=== PATIENT | male | born 1950 | race Caucasian/White ===

== ENCOUNTER 2020-09-26 14:57 | Outpatient (REF) | payer OTHER, SELFPAY | END 2020-09-26 14:58 | disposition home or self-care (01) | LOC: HO.LAB 14:57 | PROVIDERS: Visit Provider Internal Medicine | DX: Z20.828 Contact with and (suspected) exposure to other viral communicable diseases (principal) | CPT/HCPCS: C9803; U0003 ==

== ENCOUNTER 2020-10-24 13:47 | Outpatient (REF) | payer OTHER, SELFPAY | END 2020-10-24 13:48 | disposition home or self-care (01) | LOC: HO.LAB 13:47 | PROVIDERS: Visit Provider Internal Medicine | DX: Z20.822 Contact with and (suspected) exposure to COVID-19 (principal) | CPT/HCPCS: 36415; C9803; U0003 ==

== ENCOUNTER 2020-11-03 12:38 | Outpatient (REF) | payer OTHER, SELFPAY | END 2020-11-03 12:39 | disposition home or self-care (01) | LOC: HO.LAB 12:38 | PROVIDERS: Visit Provider Internal Medicine | DX: Z20.822 Contact with and (suspected) exposure to COVID-19 (principal) | CPT/HCPCS: 36415; C9803; U0003 ==

== ENCOUNTER 2021-06-16 13:18 | Emergency (ER) | payer OTHER, SELFPAY ==
--- NOTE | ~2021-06-16 | CT_ITS ---
EXAMINATION: CT HEAD WITHOUT CONTRAST CLINICAL INFORMATION: New onset seizures. History of colon cancer. COMPARISON: None TECHNIQUE: Contiguous axial imaging was performed from the skull base to vertex without intravenous administration of contrast. This CT examination was performed using dose optimization techniques as appropriate, variously including the following: *Automated exposure control *Adjustment of mA and/or kV according to patient size (this includes techniques or standardized protocols for targeted exams where dose is matched to indication/reason for exam; i.e. extremities or head) *Use of iterative reconstruction technique DLP: 624 mGy-cm FINDINGS: There is no acute intra-axial, extra-axial bleed, masses, collection or midline shift. There is no acute infarct or edema. There is moderate prominence of bifrontal cortical sulci and subarachnoid space. The lateral. The ventricles are normal in size and symmetry. The echevarria to white matter differentiation is maintained normal. There is no abnormal attenuation within the brain parenchyma. The osseous structures and soft tissues are normal. The mastoid air cells and visualized portions of the paranasal sinuses are well aerated. CT/CT head/brain wo con IMPRESSION: No acute intracranial process seen.
[2021-06-16 13:31] VITALS: BP 160/72; BP 168/67; PULSE 74; PULSE 80; RESP 13; TEMP 36.8; O2SAT 97; O2SAT 99; BMI 18.8
--- NOTE | 2021-06-16 13:32 | ECG_ITS ---
Test Reason : SEIZURE Blood Pressure : / mmHG Vent. Rate : 073 BPM Atrial Rate : 073 BPM P-R Int : 128 ms QRS Dur : 098 ms QT Int : 414 ms P-R-T Axes : 061 012 124 degrees QTc Int : 456 ms Normal sinus rhythm Possible Left atrial enlargement Left ventricular hypertrophy with repolarization abnormality T-wave inversion in Lateral leads Abnormal ECG No previous ECGs available Referred By: Rosa Mcekon Electronically Signed By:EBER HARVEY
--- NOTE | 2021-06-16 13:33 | ED_ITS ---
HPI - Seizure General Chief Complaint: Seizure Stated Complaint: SEIZURE Time Seen by Provider: 06/16/21 13:22 Source: patient Mode of arrival: ambulatory Limitations: no limitations History of Present Illness HPI Narrative: Patient comes to the emergency room by EMS. The EMS staff reports that they were called for a tonic-clonic seizure that lasted ?a few seconds? the family reports that after the seizure the patient seemed confused for a few minutes, now patient at baseline. Patient denies headache, does not remember having a seizure. Patient states he was awake the whole time and does not remember anything happening to him, other than feeling nauseous and vomiting once prior to arrival. Patient states that he admits to drinking 1 neb of vodka and beer prior to arrival. Family reports that the patient did not fall or hit his head Related Data Allergies Allergy/AdvReac Type Severity Reaction Status Date / Time No Known Allergies Allergy Unverified 06/22/20 19:11 [No Known Allergies*] Review of Systems Review of Systems: Constitutional : No Weight loss, No Fever, No Chills, No Night Sweats, No Fatigue, No Malaise ENT/Mouth : No Hearing loss, No Ear Pain, No Nasal Congestion, No Sinus Pain, No Hoarseness, No sore throat, No Rhinorrhea, No Swallowing Difficulty Eyes: No Eye Pain, No Swelling, No Redness, No Foreign Body, No Discharge, No Vision Changes Cardiovascular : No Chest Pain, No SOB, No Dyspnea on Exertion, No Orthopnea, No Edema, No Palpitations Respiratory : No Cough, No Sputum, No Wheezing, No Smoke Exposure, No Dyspnea Gastrointestinal : 1 episode of nausea and vomiting, No Diarrhea, No Constipation, No abdominal Pain, No Hematochezia, No Melena Genitourinary : no irregular bleeding, No Dysuria, No Urinary Frequency, No Hematuria, No Urinary Incontinence, No Urgency, No Flank Pain, No Urinary Flow Changes, No Hesitancy Musculoskeletal : No joint pain, No Myalgias, No Joint Swelling Skin : No Skin Lesions, No rash Neuro : No Weakness, No Numbness, No Paresthesias, No Loss of Consciousness, No Dizziness, No Headache, possibly had a seizure Psych : No Anxiety/Panic, No Depression, No SI/HI/AH/VH, No Social Issues, Heme/Lymph: No Bruising, No Bleeding,No Lymphadenopathy Endocrine : No Polyuria, No Polydipsia, No Temperature Intolerance COUNTS INCLUDE 234 BEDS AT THE [facility] Past Medical History Medical History (Updated 06/16/21 @ 13:38 by Rosa Mckeon MD) Direct inguinal hernia Social History Social History Alcohol intake: current Alcohol intake frequency: 3 or more drinks per day Alcohol type: beer and hard liquor Patient Tobacco Use Status: Current everyday Tobacco user Use of substances other than those prescribed or required for medical reasons: No Advance Directives: No Advance Directives Information Provided: Yes Physical Exam Vital Signs: Vital Signs: Last Vital Signs Temp 98.2 F 06/16/21 13:31 Pulse 74 06/16/21 13:31 Resp 13 06/16/21 13:31 BP 168/67 H 06/16/21 13:31 Pulse Ox 97 06/16/21 13:31 Body Mass Index 18.8 Const: Other: Appearance: Alert. Oriented X3. No acute distress. Patient is not postictal Eyes: Pupils equal, round and reactive to light. ENT: Pharynx normal. Neck: Normal inspection. Neck supple. No lymph nodes noted. No crepitus CVS: Normal heart rate and rhythm. Pulses normal. Normal S1 and S2 Respiratory: No respiratory distress. Breath sounds normal. No Wheezing. No rales Abdomen: Soft and nontender. No rigidity. No distention. good BS x4 Skin: Skin warm and dry. Normal skin color. Normal skin turgor. Extremities: No lower extremity edema No Lacerations. No Rash Neuro: Oriented X 3. No motor deficit. No sensory deficit. Moving all extermities. No slurred speech. Course Course Course Narrative: Patient is alert and oriented x3. Patient's head CT is normal, lactic acid within normal limits, white blood cell count normal. At this time, it is unclear if patient actually did have a seizure. Patient at this time is stable, asymptomatic. Patient will be discharged home. At this time, we will not start any medications for seizures. Patient's troponin is pending. If negative, patient can be discharged home. Sign-out given to Dr. Inez MCGILL - Seizure Lab Data Result diagrams: 06/16/21 14:02 06/16/21 14:02 Labs: Lab Results 06/16/21 06/16/21 06/16/21 Range/Units 14:02 14:02 14:02 WBC 10.0 (4.8-10.8) X10*3/uL RBC 4.45 L (4.60-5.80) X10*6/uL Hgb 14.8 (14.0-18.0) g/dl Hct 42.6 (42-52) % MCV 95.7 (80-98) fL MCH 33.3 H (27.0-33.0) pg MCHC 34.7 (31.0-36.0) g/dl RDW 15.6 (11.0-16.0) % Plt Count 273 (160-400) X10*3/uL MPV 9.4 (9.4-12.4) fL Immature Gran % (Auto) 0.4 (0.0-0.4) % Neut % (Auto) 58.6 (45-73) % Lymph % (Auto) 28.9 (20-40) % Louisa % (Auto) 9.5 (2-11) % Eos % (Auto) 2.2 (0-4) % Baso % (Auto) 0.4 (0-2) % Lymph # (Auto) 2.9 (1.2-4.9) X10*3/uL Louisa # (Auto) 1.0 (0.1-1.2) X10*3/uL Eos # (Auto) 0.2 (0.0-0.4) X10*3/uL Baso # (Auto) 0.0 (0.0-0.2) X10*3/uL Abs Immat Gran (auto) 0.04 H (0.00-0.03) X10*3/uL Absolute Neuts (auto) 5.9 (2.0-8.3) X10*3/uL Absolute Nucleated RBC 0.000 (0.0-0.012) X10*3/uL Nucleated RBC % (auto) 0.0 (0.0-0.2) /100WBC Sodium 140 (135-145) mmol/L Potassium 3.7 (3.3-5.1) mmol/L Chloride 105 (96-108) mmol/L Carbon Dioxide 24 (22-29) mmol/L Anion Gap 15 (12-20) BUN 6 L (9-16) mg/dL Creatinine 0.87 (0.5-1.4) mg/dL Estim Creat Clear Calc 59.9 Estimated GFR > 60 Random Glucose 88 (60-115) mg/dL Lactic Acid 1.8 (0.5-2.0) mmol/L Calcium 9.7 (8.4-10.2) mg/dL Total Bilirubin 0.8 (0.0-1.0) mg/dL Direct Bilirubin 0.3 (0.0-0.5) mg/dL AST 21 (5-37) U/L ALT 12 (0-40) U/L Alkaline Phosphatase 74 (39-117) U/L Total Protein 6.9 (6.5-8.0) g/dL Albumin 4.3 (3.5-5.0) g/dL Ethyl Alcohol mg/dL 06/16/21 Range/Units 14:02 WBC (4.8-10.8) X10*3/uL RBC (4.60-5.80) X10*6/uL Hgb (14.0-18.0) g/dl Hct (42-52) % MCV (80-98) fL MCH (27.0-33.0) pg MCHC (31.0-36.0) g/dl RDW (11.0-16.0) % Plt Count (160-400) X10*3/uL MPV (9.4-12.4) fL Immature Gran % (Auto) (0.0-0.4) % Neut % (Auto) (45-73) % Lymph % (Auto) (20-40) % Louisa % (Auto) (2-11) % Eos % (Auto) (0-4) % Baso % (Auto) (0-2) % Lymph # (Auto) (1.2-4.9) X10*3/uL Louisa # (Auto) (0.1-1.2) X10*3/uL Eos # (Auto) (0.0-0.4) X10*3/uL Baso # (Auto) (0.0-0.2) X10*3/uL Abs Immat Gran (auto) (0.00-0.03) X10*3/uL Absolute Neuts (auto) (2.0-8.3) X10*3/uL Absolute Nucleated RBC (0.0-0.012) X10*3/uL Nucleated RBC % (auto) (0.0-0.2) /100WBC Sodium (135-145) mmol/L Potassium (3.3-5.1) mmol/L Chloride (96-108) mmol/L Carbon Dioxide (22-29) mmol/L Anion Gap (12-20) BUN (9-16) mg/dL Creatinine (0.5-1.4) mg/dL Estim Creat Clear Calc Estimated GFR Random Glucose (60-115) mg/dL Lactic Acid (0.5-2.0) mmol/L Calcium (8.4-10.2) mg/dL Total Bilirubin (0.0-1.0) mg/dL Direct Bilirubin (0.0-0.5) mg/dL AST (5-37) U/L ALT (0-40) U/L Alkaline Phosphatase (39-117) U/L Total Protein (6.5-8.0) g/dL Albumin (3.5-5.0) g/dL Ethyl Alcohol 80 mg/dL Imaging Data CT scan - head: Radiologist's impression: There is no acute intra-axial, extra-axial bleed, masses, collection or midline shift. There is no acute infarct or edema. There is moderate prominence of bifrontal cortical sulci and subarachnoid space. The lateral. The ventricles are normal in size and symmetry. The echevarria to white matter differentiation is maintained normal. There is no abnormal attenuation within the brain parenchyma. The osseous structures and soft tissues are normal. The mastoid air cells and visualized portions of the paranasal sinuses are well aerated. ? CT/CT head/brain wo con IMPRESSION: No acute intracranial process seen. ECG Data Attestation: I personally reviewed and interpreted this ECG as follows: (Sinus rhythm 73, nonspecific ST segment elevation in lead V3, T-wave inversion in leads V4 through V6, no previous EKGs for comparison) Discharge Plan Discharge Clinical Impression: Alcohol abuse Patient Disposition: Home, Self-Care Instructions: Abuse of Alcohol (ED) Additional Instructions: Please follow-up with your primary care physician tomorrow. If you have any worsening or new symptoms, please return to the emergency room or call 911
[2021-06-16 14:06] LABS: MANUAL DIFF FLAG NO
[2021-06-16 14:08] LABS: Basophils Percent Auto 0.4 % (0-2); Eosinophils Absolute Auto 0.2 X10*3/uL (0.0-0.4); Eosinophils Percent Auto 2.2 % (0-4); Hematocrit 42.6 % (42-52); Hemoglobin 14.8 g/dl (14.0-18.0); Imm Gran Abs Auto 0.04 X10*3/uL (0.00-0.03); Imm Gran Pct Auto 0.4 % (0.0-0.4); Lymphocytes Absolute Auto 2.9 X10*3/uL (1.2-4.9); Lymphocytes Percent Auto 28.9 % (20-40); Mean Corpuscular HGB Conc 34.7 g/dl (31.0-36.0); Mean Corpuscular Hemoglobin 33.3 pg (27.0-33.0); Mean Corpuscular Volume 95.7 fL (80-98); Mean Platelet Volume 9.4 fL (9.4-12.4); Monocytes Percent Auto 9.5 % (2-11); Neutrophils Absolute Auto 5.9 X10*3/uL (2.0-8.3); Neutrophils Percent Auto 58.6 % (45-73); Platelet Count 273 X10*3/uL (160-400); Red Blood Count 4.45 X10*6/uL (4.60-5.80); Red Cell Distribution Width 15.6 % (11.0-16.0)
[2021-06-16 14:20] LABS: Lactic Acid 1.8 mmol/L (0.5-2.0)
[2021-06-16 14:23] LABS: Ethanol 80 mg/dL
[2021-06-16 14:27] LABS: Alanine Aminotransferase 12 U/L (0-40); Albumin Level 4.3 g/dL (3.5-5.0); Alkaline Phosphatase 74 U/L (39-117); Anion Gap 15 (12-20); Aspartate Amino Transferase 21 U/L (5-37); Bilirubin Direct 0.3 mg/dL (0.0-0.5); Bilirubin Total 0.8 mg/dL (0.0-1.0); Blood Urea Nitrogen 6 mg/dL (9-16); Calcium 9.7 mg/dL (8.4-10.2); Carbon Dioxide 24 mmol/L (22-29); Chloride 105 mmol/L (96-108); Creatinine Clr Calc Pharmacy 59.9; Estimated Glomerular Filt Rate > 60; Glucose Random 88 mg/dL (60-115); Potassium 3.7 mmol/L (3.3-5.1); Sodium 140 mmol/L (135-145); Total Protein 6.9 g/dL (6.5-8.0)
[2021-06-16 16:27] VITALS: BP 176/82; PULSE 64; RESP 18; O2SAT 99
--- NOTE | 2021-06-16 16:30 | PC.NURSE ---
Resting quietly in NAD. VSS
--- NOTE | 2021-06-16 19:23 | PC.NURSE ---
Addendum entered by Michelle Browning 06/16/21 20:20: Note/Report is on incorrect patient- HIM to correct Addendum entered by Michelle Browning 06/16/21 19:30: Notes entered in error; wrong patient. Addendum entered by Michelle Browning 06/16/21 19:25: note incomplete but this RN had to switch screens to answer Dr Wiley if pt had rec'd chest xr per Dr Mckeon' orders. Pt with seizure hx and had seizure today witnessed by family. This RN to Dr Wiley who rec'd sign out from Dr Mckeon. Dr Wiley reports he will assess pt and dispo pt. While this RN at bedside, Dr Wiley arrives at bedside. Per Dr Wiley, plan for chest XR and PO pain meds. Pt expresses understanding, is agreeable to plan. Pt remains on bedside air sampling and monitoring, VSS. Stretcher in low locked position, rails raised, call bhakta within reach Original Note: This RN rec'd report from Jessenia Alba RN. Per Jessenia in report, pt removed PIV prior to completion of sepsis fluids. Pt's lactic had been down trending from 6 to 2.3 after one liter. Pt medicated with PO depakote This RN to bedside to assess pt and obtain repeat lactic.
--- NOTE | 2021-06-16 19:28 | PC.NURSE ---
Addendum entered by Michelle Browning 06/16/21 20:24: Note/Report is on incorrect patient- HIM to correct Original Note: Per Dr Wiley, do not draw repeat lactic. Not needed at this time as Dr Wiley believes lactic was elevated d/t seizure. Pt does not need completion of IVF.
[2021-06-16 20:27] VITALS: BP 176/80; PULSE 71; RESP 13; O2SAT 99
== END 2021-06-16 21:02 | disposition home or self-care (01) ==
PROVIDERS: Emergency Medicine; Emergency Provider Emergency Medicine Emergency Medical Services
DX: F10.10 Alcohol abuse, uncomplicated (principal); Y90.4 Blood alcohol level of 80-99 mg/100 ml; F17.210 Nicotine dependence, cigarettes, uncomplicated
CPT/HCPCS: 36415; 70450; 80048; 80076; 82077; 83605; 84484; 85025; 93005; 99284

== ENCOUNTER 2021-11-19 10:05 | Outpatient (REF) | payer MEDICARE, MEDICAID, SELFPAY ==
[2021-11-19 10:37] LABS: COVID-19 Test Negative (Negative)
== END 2021-11-19 10:06 | disposition home or self-care (01) ==
LOC: HO.LAB 10:05
PROVIDERS: Visit Provider Internal Medicine
DX: Z20.822 Contact with and (suspected) exposure to COVID-19 (principal)
CPT/HCPCS: 87635; C9803

== ENCOUNTER 2022-02-13 12:13 | Inpatient (IN) | payer OTHER, MEDICARE, MEDICAID, SELFPAY ==
--- NOTE | ~2022-02-13 | CT_ITS ---
EXAMINATION: CT ABDOMEN AND PELVIS WITHOUT CONTRAST CLINICAL INFORMATION: Colectomy and abdominal pain. Blood in ostomy. COMPARISON: None TECHNIQUE: Multidetector volumetric imaging was performed from the superior aspect of the liver through the pubic symphysis. Sagittal and coronal reformatted images were obtained on the technologist's workstation. This CT examination was performed using dose optimization techniques as appropriate, variously including the following: *Automated exposure control *Adjustment of mA and/or kV according to patient size (this includes techniques or standardized protocols for targeted exams where dose is matched to indication/reason for exam; i.e. extremities or head) *Use of iterative reconstruction technique DLP: 216 mGy-cm FINDINGS: LUNG BASES: There are 2, 4 mm calcified nodules in the right lower lobe. Lung bases are otherwise clear. LIVER, GALLBLADDER, AND BILIARY TREE: There is a small calcification in the liver. The liver is otherwise unremarkable. The gallbladder is unremarkable. There is no biliary duct dilatation. The gallbladder is unremarkable with no evidence of radiopaque gallstones, gallbladder wall thickening, or obvious pericholecystic inflammatory changes. PANCREAS: Unremarkable. SPLEEN: Unremarkable. ADRENAL GLANDS: Unremarkable. KIDNEYS AND URETERS: There are bilateral renal calcifications probably representing a combination of vascular calcifications and small stones. There is a small 1 cm cyst in the lower pole of the right kidney. No imaging follow-up is indicated. BLADDER: Unremarkable GASTROINTESTINAL TRACT: There are postsurgical changes to the sigmoid colon surgical staple lines. There is a right colectomy and right lower quadrant ileostomy. There is diverticulosis of the colon. Small and large bowel is otherwise unremarkable. No evidence of enteritis or colitis or obstruction. No ascites or free air is seen. ABDOMINAL WALL: No significant hernia is appreciated. LYMPH NODES: There are small, small bowel mesentery lymph nodes. No enlarged lymph nodes are seen. VASCULAR: There is severe atherosclerotic disease. PELVIC VISCERA: The prostate gland is slightly enlarged measuring 3.5 x 0.5 cm. OSSEOUS STRUCTURES: There are degenerative changes of the spine. CT/CT abdomen pelvis wo con IMPRESSION: Postsurgical changes. No evidence of enteritis, colitis or obstruction. Severe atherosclerotic disease. Probable small bilateral renal stones. Small right renal cyst. Fleischner guidelines were followed.
--- NOTE | ~2022-02-13 | XR_ITS ---
EXAMINATION: XR CHEST CLINICAL INFORMATION: Failure to thrive COMPARISON: None TECHNIQUE: AP portable view of the chest was obtained. FINDINGS: No confluent parenchymal disease identified. There are a few calcified granulomas present. No pneumothorax or pleural effusion. Heart normal size. No evidence of pulmonary edema. Right internal jugular port catheter in place with tip at the level of the caval atrial junction. XR/XR chest 1V IMPRESSION: No acute disease.
[2022-02-13 12:17] VITALS: BP 130/70; BP 153/85; PULSE 79; PULSE 85; RESP 20; TEMP 36.4; O2SAT 98; BMI 16.3
[2022-02-13 12:37] LABS: OBS Int Ctl Valid YES; OBS1 NEGATIVE (NEGATIVE)
--- NOTE | 2022-02-13 12:37 | ECG_ITS ---
Test Reason : FAILURE TO THRIVE Blood Pressure : / mmHG Vent. Rate : 078 BPM Atrial Rate : 078 BPM P-R Int : 130 ms QRS Dur : 092 ms QT Int : 384 ms P-R-T Axes : 083 055 119 degrees QTc Int : 437 ms Normal sinus rhythm Biatrial enlargement Left ventricular hypertrophy ( Sokolow-Schwartz , Ledbetter product ) ST & T wave abnormality, consider anterolateral ischemia Abnormal ECG When compared with ECG of 16-JUN-2021 13:50, No significant change was found Referred By: Tsering Baker Electronically Signed By:MARIAM MEIER MD
[2022-02-13 13:10] LABS: MANUAL DIFF FLAG NO
[2022-02-13 13:16] LABS: Basophils Percent Auto 0.3 % (0-2); Eosinophils Percent Auto 0.1 % (0-4); Hematocrit 47.1 % (42.0-52.0); Hemoglobin 16.2 g/dl (14.0-18.0); Imm Gran Pct Auto 0.7 % (0.0-0.4); Lymphocytes Absolute Auto 2.2 X10*3/uL (1.2-4.9); Lymphocytes Percent Auto 15.7 % (20-40); Mean Corpuscular HGB Conc 34.4 g/dl (31.0-36.0); Mean Corpuscular Hemoglobin 31.5 pg (27.0-33.0); Mean Corpuscular Volume 91.5 fL (80.0-98.0); Mean Platelet Volume 9.4 fL (9.4-12.4); Monocytes Absolute Auto 0.8 X10*3/uL (0.1-1.2); Monocytes Percent Auto 5.5 % (2-11); Neutrophils Absolute Auto 11.1 x10*3/uL (2.0-8.3); Neutrophils Percent Auto 77.7 % (45-73); Platelet Count 406 X10*3/uL (160-400); Red Blood Count 5.15 X10*6/uL (4.60-5.80); Red Cell Distribution Width 13.2 % (11.0-16.0); White Blood Count 14.3 X10*3/uL (4.8-10.8)
[2022-02-13] MEDS: 0.9 % Sodium Chloride 1,000 ML 999 ML IV (13:23)
[2022-02-13 13:27] LABS: COVID-19 Test Negative (Negative); IDNOW Serial# 55D5AD1C
[2022-02-13 13:36] LABS: Troponin-I High Sensitivity 8.9 ng/L (<3.5-35.0)
[2022-02-13 13:44] LABS: Alanine Aminotransferase 29 U/L (0-40); Alkaline Phosphatase 180 U/L (39-117); Anion Gap 21 (12-20); Aspartate Amino Transferase 26 U/L (5-37); Bilirubin Direct 0.3 mg/dL (0.0-0.5); Bilirubin Total 1.1 mg/dL (0.0-1.0); Blood Urea Nitrogen 82 mg/dL (9-16); Calcium 11.5 mg/dL (8.4-10.2); Carbon Dioxide 18 mmol/L (22-29); Chloride 95 mmol/L (96-108); Creatinine Clr Calc Pharmacy 20.2; Estimated Glomerular Filt Rate 29; Glucose Random 113 mg/dL (60-115); Lipase 64 U/L (8-78); Potassium 6.7 mmol/L (3.3-5.1); Sodium 127 mmol/L (135-145); Total Protein 9.9 g/dL (6.5-8.0)
[2022-02-13] MEDS: Sodium Polystyrene Sulfon/Sorb 15 GM/60 ML ORAL.SUSP 30 GM PO (14:24)
[2022-02-13] MEDS: Calcium Gluconate/NaCl,Iso-Osm 2 GM/100 ML PLAST..BAG IV (14:24)
--- NOTE | 2022-02-13 14:41 | ED_ITS ---
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 Related Data Allergies Allergy/AdvReac Type Severity Reaction Status Date / Time No Known Allergies Allergy Unverified 06/22/20 19:11 [No Known Allergies*] Review of Systems Review of Systems: All other systems are reviewed and are negative Constitutional: Reports as per HPI and Reports no additional constitutional complaints Eyes: Reports as per HPI and Reports no additional eye complaints Reports system reviewed and no additional complaints, except as documented Cardiovascular: Reports as per HPI and Reports no additional cardiovascular complaints Respiratory: Reports as per HPI and Reports no additional respiratory complaints Gastrointestinal: Reports as per HPI and Reports no additional gastrointestinal complaints Genitourinary: Reports no additional female genitourinary complaints Musculoskeletal: Reports no additional musculoskeletal complaints Skin/Breast: Reports system reviewed and no additional complaints, except as docu Psychiatric: Reports no additional psychiatric complaints Endocrine: Reports no additional endocrine complaints Hematologic/Lymphatic: Reports no additional hematologic/lymphatic complaints Allergic/Immunologic: Reports no additional allergic/immunologic complaints Reports system reviewed and no additional complaints, except as documented and Reports Abnormal speech present [facility] Past Medical History Medical History (Updated 02/13/22 @ 14:59 by Tsering Baker MD) Direct inguinal hernia Social History Social History Alcohol intake: current Alcohol intake frequency: does not drink Alcohol type: beer and hard liquor Patient Tobacco Use Status: Former Tobacco user Smoked in Last 30 Days: No Use of substances other than those prescribed or required for medical reasons: No Advance Directives: No Physical Exam ED Vital Signs: Vital Signs - 24 hr 02/13/22 12:17 Temperature 97.6 F Pulse Rate 85 Respiratory Rate 20 Blood Pressure 153/85 H Pulse Oximetry 98 BMI result Body Mass Index 16.3 Vital signs have been reviewed as appeared to be correct. Blood pressure normal. Heart rate normal. Respiration rate normal. Temperature normal. Oxygen saturation normal. Appearance: Alert. No acute distress. Head: Normal external exam. Normocephalic. Atraumatic. No Sharp signs noted. No raccoon eyes noted Eyes: PERRLA. EOMI. Conjunctiva and sclera normal. Eyelids normal. ENT: TM's Normal. Pharynx normal. Uvula midline. Moist mucous membranes. No trismus noted. No drooling noted. No muffled voice noted. Neck: Normal inspection. Neck supple. FROM. No adenopathy. Thyroid Normal. No meningeal signs. No neck mass noted. CVS: Normal heart rate and rhythm. Heart sound normal. No murmurs noted. Pulses normal throughout. Respiratory: No respiratory distress. Painless inspiration. Breath sounds normal. No wheezes/rales/rhonchi noted. Chest nontender. No accessory muscle u mary noted or decreased air movement noted. Abdomen: Soft, nontender, ostomy bag is full of dark liquid stool, no blood. Bowel sounds normal in all 4 quadrants. No distention noted. No organomegaly noted. No visible injury noted. Back: No CVA tenderness. Full range of motion noted. Skin: Skin warm and dry. Normal skin color. Normal skin turgor. No rashes/lesions/lacerations noted. Extremities: No lower extremity edema. Extremities exhibit normal range of motion. Extremities nontender. Neuro: Cranial nerve exam: II-XII are grossly intact No motor deficit. No sensory deficit. Reflexes normal. Course Course Course Narrative: Assessment and plan. 71-year-old male with colostomy done at [facility] record is not available currently but requested from [facility], appear patient dehydration with prerenal acute injury with hyperkalemia with no EKG changes. 1. Nephrology consult by Dr. Thomas Cintron, insert Cox catheter, give Kayexalate 30 g p.o., calcium 2 g, hydration, check urine electrolytes. 2. Surgical consult for possible high ostomy output (case discussed with Dr. Alvarez). Medical Decision Making Lab Data Lab results reviewed: Yes I reviewed the patient's lab results. Result diagrams: 02/13/22 13:00 02/13/22 13:00 Labs: Lab Results 02/13/22 02/13/22 02/13/22 Range/Units 12:30 13:00 13:00 WBC 14.3 H (4.8-10.8) X10*3/uL RBC 5.15 (4.60-5.80) X10*6/uL Hgb 16.2 (14.0-18.0) g/dl Hct 47.1 (42.0-52.0) % MCV 91.5 (80.0-98.0) fL MCH 31.5 (27.0-33.0) pg MCHC 34.4 (31.0-36.0) g/dl RDW 13.2 (11.0-16.0) % Plt Count 406 H (160-400) X10*3/uL MPV 9.4 (9.4-12.4) fL Immature Gran % (Auto) 0.7 H (0.0-0.4) % Neut % (Auto) 77.7 H (45-73) % Lymph % (Auto) 15.7 L (20-40) % Caroline % (Auto) 5.5 (2-11) % Eos % (Auto) 0.1 (0-4) % Baso % (Auto) 0.3 (0-2) % Lymph # (Auto) 2.2 (1.2-4.9) X10*3/uL Caroline # (Auto) 0.8 (0.1-1.2) X10*3/uL Eos # (Auto) 0.0 (0.0-0.4) X10*3/uL Baso # (Auto) 0.0 (0.0-0.2) X10*3/uL Abs Immat Gran (auto) 0.10 H (0.00-0.03) X10*3/uL Absolute Neuts (auto) 11.1 H (2.0-8.3) x10*3/uL Absolute Nucleated RBC 0.000 (0.0-0.012) X10*3/uL Nucleated RBC % (auto) 0.0 (0.0-0.2) /100WBC Sodium 127 L (135-145) mmol/L Potassium 6.7 H* D (3.3-5.1) mmol/L Chloride 95 L (96-108) mmol/L Carbon Dioxide 18 L (22-29) mmol/L Anion Gap 21 H (12-20) BUN 82 H (9-16) mg/dL Creatinine 2.21 H (0.5-1.4) mg/dL Estim Creat Clear Calc 20.2 Estimated GFR 29 Random Glucose 113 (60-115) mg/dL Calcium 11.5 H D (8.4-10.2) mg/dL Total Bilirubin 1.1 H (0.0-1.0) mg/dL Direct Bilirubin 0.3 (0.0-0.5) mg/dL AST 26 (5-37) U/L ALT 29 (0-40) U/L Alkaline Phosphatase 180 H D (39-117) U/L Troponin I High Sens (<3.5-35.0) ng/L Total Protein 9.9 H D (6.5-8.0) g/dL Albumin 5.0 (3.5-5.0) g/dL Lipase 64 (8-78) U/L Stool Occult Blood NEGATIVE (NEGATIVE) COVID-19 (B[facility]AN) (Negative) COVID-19 Clin Com 02/13/22 02/13/22 Range/Units 13:00 13:00 WBC (4.8-10.8) X10*3/uL RBC (4.60-5.80) X10*6/uL Hgb (14.0-18.0) g/dl Hct (42.0-52.0) % MCV (80.0-98.0) fL MCH (27.0-33.0) pg MCHC (31.0-36.0) g/dl RDW (11.0-16.0) % Plt Count (160-400) X10*3/uL MPV (9.4-12.4) fL Immature Gran % (Auto) (0.0-0.4) % Neut % (Auto) (45-73) % Lymph % (Auto) (20-40) % Caroline % (Auto) (2-11) % Eos % (Auto) (0-4) % Baso % (Auto) (0-2) % Lymph # (Auto) (1.2-4.9) X10*3/uL Caroline # (Auto) (0.1-1.2) X10*3/uL Eos # (Auto) (0.0-0.4) X10*3/uL Baso # (Auto) (0.0-0.2) X10*3/uL Abs Immat Gran (auto) (0.00-0.03) X10*3/uL Absolute Neuts (auto) (2.0-8.3) x10*3/uL Absolute Nucleated RBC (0.0-0.012) X10*3/uL Nucleated RBC % (auto) (0.0-0.2) /100WBC Sodium (135-145) mmol/L Potassium (3.3-5.1) mmol/L Chloride (96-108) mmol/L Carbon Dioxide (22-29) mmol/L Anion Gap (12-20) BUN (9-16) mg/dL Creatinine (0.5-1.4) mg/dL Estim Creat Clear Calc Estimated GFR Random Glucose (60-115) mg/dL Calcium (8.4-10.2) mg/dL Total Bilirubin (0.0-1.0) mg/dL Direct Bilirubin (0.0-0.5) mg/dL AST (5-37) U/L ALT (0-40) U/L Alkaline Phosphatase (39-117) U/L Troponin I High Sens 8.9 (<3.5-35.0) ng/L Total Protein (6.5-8.0) g/dL Albumin (3.5-5.0) g/dL Lipase (8-78) U/L Stool Occult Blood (NEGATIVE) COVID-19 (BRIAN) Negative (Negative) COVID-19 Clin Com See Note Imaging Data CT scan - abdomen: Attestation: I personally reviewed and interpreted this imaging study as follows: Radiologist's impression: Postsurgical changes. No evidence of enteritis, colitis or obstruction.Severe atherosclerotic disease. Probable small bilateral renal stones. Small right renal cyst. ECG Data Attestation: I personally reviewed and interpreted this ECG as follows: Interpretation: Normal sinus rhythm at 78 beats per minutes, normal axis deviation, LVH, diffuse T-wave inversion in the lateral leads. no change from EKG. Discharge Plan Discharge Clinical Impression: High output ileostomy, Acute renal failure, Acute hyperkalemia Patient Disposition: Admitted As Inpatient
[2022-02-13] MEDS: Lidocaine HCl 2 % Urojet 10 ML JEL.PF.APP TOPICAL (15:17)
--- NOTE | 2022-02-13 15:44 | P.HPHOSP_ITS ---
History of Present Illness Date of Service: 02/13/22 Chief Complaint: lethargy, high output colostomy history from patient via office assistant receptionist, darryl historian 71M presented with weakness, high output from colostomy and back pain, for about 1-2 weeks ptpUche ly reports history of colostomy s/p colectomy for colon ca. he reports to be in remission. he was at PCPs office who felt patient looked poor, reported 1-2 weeks anorexia and sent patient to ED. in ED found to be in MAXIMO with creatinine of 2.21, hypoerkalemia with potassium of 6.7. was given 30gm kayexylate, cagluconate, IV fluids. Review of Systems Review of Systems: Constitutional: Denies fever, denies Chills Eyes: denies blurry vision ENT: denies sore throat CVS: denies chest pain Respiratory: Denies dyspnea GI: high outpute colosotmy : denies dysuria MSK: denies neck pain Skin: denies rash Neuro: denies specific motor weakness Psych: denies suicidal ideation Endocrine: denies heat/cold intolerance Hematologic: denies easy bleeding Allergy: denies hives [facility] Medical History Colon cancer Direct inguinal hernia HTN (hypertension) Family History Mother Colon cancer Surgical History H/O colectomy Social History Alcohol intake: current Alcohol intake frequency: does not drink Alcohol type: beer and hard liquor Patient Tobacco Use Status: Former Tobacco user Smoked in Last 30 Days: No Use of substances other than those prescribed or required for medical reasons: No Advance Directives: No Meds Allergies Allergy/AdvReac Type Severity Reaction Status Date / Time No Known Allergies Allergy Unverified 06/22/20 19:11 [No Known Allergies*] Active Medications: Current Medications Acetaminophen (Acetaminophen 325 Mg Tablet) 650 mg PO Q6H PRN PRN Reason: Pain, Mild (Pain Scale 1-3) Heparin Sodium (Porcine) (Heparin Sodium,Porcine 5,000 Unit/Ml Vial) 5,000 unit SUBCUT Q12H SKIP Calcium Gluconate (Calcium Gluconate) 2 gm in 100 mls @ 50 mls/hr IV ONCE ONE Stop: 02/13/22 16:11 Last Admin: 02/13/22 14:24 Dose: 50 mls/hr Documented by: Sodium Bicarbonate 150 meq/ (Dextrose) 1,000 mls @ 100 mls/hr IV .Q10H [facility] Pharmacy Consult (Consult Rx Perform Med Rec) 1 each MISCELLANE ONCE PRN PRN Reason: Consult order Sodium Chloride (0.9 % Sodium Chloride Flush 3 Ml Syringe) 3 ml IVFLUSH QSHIFT [facility] Physical Exam Vital Signs and Narrative: Vital Signs: Last Vital Signs Temp 97.6 F 02/13/22 12:17 Pulse 85 02/13/22 12:17 Resp 20 02/13/22 12:17 BP 153/85 H 02/13/22 12:17 Pulse Ox 98 02/13/22 12:17 BMI result Body Mass Index 16.3 General: frail ill appearing, cachexic HEENT: atraumatic Neck: normal to visual inspection CVS: S1, S2, RRR Resp: CTA bilateral Chest: non tender GI: soft, non tender, non distended : no CVA tenderness Skin: no rashes Extremities: no edema Neuro: Oriented X3, grossly intact Psych: cooperative Results Labs CBC and Chem 7: 02/13/22 13:00 02/13/22 13:00 Labs: Laboratory Results - last 24 hr 02/13/22 02/13/22 02/13/22 12:30 13:00 13:00 MCV 91.5 MCH 31.5 MCHC 34.4 RDW 13.2 Plt Count 406 H MPV 9.4 Immature Gran % (Auto) 0.7 H Neut % (Auto) 77.7 H Lymph % (Auto) 15.7 L [place] % (Auto) 5.5 Eos % (Auto) 0.1 Baso % (Auto) 0.3 Lymph # (Auto) 2.2 [place] # (Auto) 0.8 Eos # (Auto) 0.0 Baso # (Auto) 0.0 Abs Immat Gran (auto) 0.10 H Absolute Neuts (auto) 11.1 H Absolute Nucleated RBC 0.000 Nucleated RBC % (auto) 0.0 Anion Gap 21 H Estim Creat Clear Calc 20.2 Estimated GFR 29 Random Glucose 113 Calcium 11.5 H D Total Bilirubin 1.1 H Direct Bilirubin 0.3 AST 26 ALT 29 Alkaline Phosphatase 180 H D Troponin I High Sens Total Protein 9.9 H D Albumin 5.0 Lipase 64 Stool Occult Blood NEGATIVE COVID-19 (BRIAN) COVID-19 Clin Com 02/13/22 02/13/22 13:00 13:00 MCV MCH MCHC RDW Plt Count MPV Immature Gran % (Auto) Neut % (Auto) Lymph % (Auto) [place] % (Auto) Eos % (Auto) Baso % (Auto) Lymph # (Auto) [place] # (Auto) Eos # (Auto) Baso # (Auto) Abs Immat Gran (auto) Absolute Neuts (auto) Absolute Nucleated RBC Nucleated RBC % (auto) Anion Gap Estim Creat Clear Calc Estimated GFR Random Glucose Calcium Total Bilirubin Direct Bilirubin AST ALT Alkaline Phosphatase Troponin I High Sens 8.9 Total Protein Albumin Lipase Stool Occult Blood COVID-19 (BRIAN) Negative COVID-19 Clin Com See Note Imaging Radiologist's Impressions: Impressions Chest X-Ray 02/13/22 12:56 IMPRESSION: No acute disease. Abdomen/Pelvis CT 02/13/22 13:17 IMPRESSION: Postsurgical changes. No evidence of enteritis, colitis or obstruction. Severe atherosclerotic disease. Probable small bilateral renal stones. Small right renal cyst. Fleischner guidelines were followed. Assessment and Plan (1) Colon cancer: Status: Acute Plan 71M presented with FTT, MAXIMO, hyperkalemia FTT, MAXIMO, and hyperkalemia, due to dehydration from high output ostomy IVF montior potassium closely tele (no ekg changes) monitor bmp nephro eval history of HTN will plan to restart home med once list obtained (depending on med) colon ca iwth moderat protein calorie malnutrition outpatient follow up dvt prophyalxis - hep sq full code patient is high risk for cardiac arrythmia due to significant hyperkalemia and maximo therfore requiring atleast 2 midnights in hospital. Quality Stroke Does the patient have a stroke diagnosis?: No VTE Prior VTE?: No VTE Risk Level:: Medical - moderate - high VTE Device Contraindication: Treatment Not Indicated VTE Drug Contraindication: N/A - Med Ordered
[2022-02-13 15:45] VITALS: BP 171/94; PULSE 95; RESP 24; TEMP 36.4; O2SAT 98
[2022-02-13 15:46] LABS: Appearance Urine HAZY; Color Urine YELLOW; Glucose Urine UA NEG (NEG); Leukocyte Esterase Urine NEG (NEG); Nitrite Urine NEG (NEG); Specific Gravity - Urine >= 1.030 (1.005-1.025); UACC Culture Trigger NO; Urine Blood 3+ (NEG); Urine Ketones NEG (NEG); Urine Protein TRACE MG/DL (NEG-TRACE)
[2022-02-13 16:00] LABS: Potassium Urine Random 79.7 mmol/L; Sodium Urine Random < 20.0 mmol/L
[2022-02-13 16:03] LABS: Chloride Urine Random < 20.0 mmol/L
[2022-02-13 16:07] LABS: WBC Urine 0-2 /HPF (0-4)
[2022-02-13 16:08] LABS: Bacteria Urine 1+ /LPF; Squamous Epithelial Cell Urine TRACE /LPF
[2022-02-13 16:10] LABS: Mucus Urine 1+ /LPF
--- NOTE | 2022-02-13 16:28 | PHA.MEDREC ---
Pharmacy Consult ? Medication Reconciliation Pharmacy has completed the medication reconciliation. Med list obtained from [place]
[2022-02-13] MEDS: Sodium Bicarbonate 8.4% 150 MEQ in Dextrose 5 % 850 ML 100 MEQ IV (17:31)
[2022-02-13] MEDS: Heparin Sodium,Porcine 5,000 UNIT/ML VIAL 5000 UNIT SUBCUT (17:31)
[2022-02-13 17:34] VITALS: BP 147/97; PULSE 101; RESP 24; O2SAT 100
[2022-02-13 18:38] LABS: Anion Gap 23 (12-20); Blood Urea Nitrogen 74 mg/dL (9-16); Calcium 11.9 mg/dL (8.4-10.2); Carbon Dioxide 12 mmol/L (22-29); Chloride 102 mmol/L (96-108); Creatinine Clr Calc Pharmacy 23.9; Estimated Glomerular Filt Rate 36; Glucose Random 123 mg/dL (60-115); Potassium 5.1 mmol/L (3.3-5.1); Sodium 132 mmol/L (135-145)
[2022-02-13 18:48] VITALS: BP 175/98; PULSE 99; RESP 18; TEMP 36.5; O2SAT 98
--- NOTE | 2022-02-13 19:04 | PC.NURSE ---
Patient noted to have wound from a surgery he states he had a month ago on his abdomen. wound dehiscence, closed scar above wound. picture taken and sent to hospitalist. covered with dry and dressing.
[2022-02-13 19:46] VITALS: PULSE 95; O2SAT 96
--- NOTE | 2022-02-13 21:00 | PC.NURSE ---
pt c/o pain at tip of penis s/p foleyt insertion. pt uncircumsized; foreskin over tip of penis, previous RN consulted to determine if the appearance was the same which she stated it was. pt sofia contents emptied to know how much true urine is being produced. pt c/o leaking around sofia, burning sensation. small amount of white-red discharge noted. Urojet was utilized for insertion. Bladder scan showed 12 cc. MD Higgins aware.
--- NOTE | 2022-02-13 21:35 | PC.NURSE ---
pt abdominal wound cleansed and redressed. wound cleansed with NS, purlent yellow thin drainage noted. 2x2 applied, covered with abd pad and reinforced with tap. pt has no c/o abd pain. ileostomy producing liquid output. pt given water and la david
[2022-02-14] VITALS (11 sets, daily range): BP systolic 120–167; BP diastolic 56–85; PULSE 73–87; RESP 14–19; TEMP 36.4–37.1; O2SAT 96–98
[2022-02-14] MEDS: Sodium Bicarbonate 8.4% 150 MEQ in Dextrose 5 % 850 ML 100 MEQ IV (04:27)
[2022-02-14] MEDS: Heparin Sodium,Porcine 5,000 UNIT/ML VIAL 5000 UNIT SUBCUT ×2 (05:43→20:58)
[2022-02-14 07:58] LABS: Hematocrit 39.5 % (42.0-52.0); Mean Corpuscular HGB Conc 35.4 g/dl (31.0-36.0); Mean Corpuscular Volume 87.6 fL (80.0-98.0); Mean Platelet Volume 9.4 fL (9.4-12.4); Platelet Count 354 X10*3/uL (160-400); Red Blood Count 4.51 X10*6/uL (4.60-5.80); Red Cell Distribution Width 12.9 % (11.0-16.0); White Blood Count 11.2 X10*3/uL (4.8-10.8)
[2022-02-14 08:17] LABS: Anion Gap 15 (12-20); Blood Urea Nitrogen 67 mg/dL (9-16); Calcium 10.3 mg/dL (8.4-10.2); Carbon Dioxide 29 mmol/L (22-29); Chloride 92 mmol/L (96-108); Creatinine Clr Calc Pharmacy 30.6; Estimated Glomerular Filt Rate 47; Glucose Fasting 141 mg/dL (60-99); Potassium 3.8 mmol/L (3.3-5.1); Sodium 132 mmol/L (135-145)
--- NOTE | 2022-02-14 11:01 | HO.PM.IMPN ---
Subjective Subjective Date of Service: 02/14/22 Interval History: cc: weakness interval history:no appetite Cardiovascular Cardiovascular: Reports no additional cardiovascular complaints Respiratory Respiratory: Reports no additional respiratory complaints Physical Exam Vital Signs: Vital Signs: Last Vital Signs Temp 98.2 F 02/14/22 08:07 Pulse 75 02/14/22 08:07 Resp 16 02/14/22 08:07 BP 132/69 02/14/22 08:07 Pulse Ox 98 02/14/22 08:07 BMI result Body Mass Index 16.3 General: AO X 3, frail appearing Resp: CTA bilateral, no accessory muscles used CVS: S1,S2,RRR GI: soft, non tender, non distended Neuro: motor grossly intact, alert Psych: appropriate affect, appropriate insight Objective Data Active Medications Acetaminophen (Acetaminophen 325 Mg Tablet) 650 mg PO Q6H PRN PRN Reason: Pain, Mild (Pain Scale 1-3) Heparin Sodium (Porcine) (Heparin Sodium,Porcine 5,000 Unit/Ml Vial) 5,000 unit SUBCUT Q12H [facility] Last Admin: 02/14/22 05:43 Dose: 5,000 unit Documented by: TYREE Sodium Chloride (Ns) 1,000 mls @ 100 mls/hr IVCONT .Q10H [facility] Loperamide HCl (Loperamide Hcl 2 Mg Capsule) 2 mg PO BID [facility] Multivitamins/Vitamin C (Multivitamin Tablet) 1 tab PO DAILY [facility] Pharmacy Consult (Consult Rx Perform Med Rec) 1 each MISCELLANE ONCE PRN PRN Reason: Consult order Sodium Chloride (0.9 % Sodium Chloride Flush 3 Ml Syringe) 3 ml IVFLUSH QSHIFT [facility] Last Admin: 02/14/22 09:07 Dose: Not Given Documented by: ONUR Non-Admin Reason: IV Running Labs CBC & Chem 7: 02/14/22 07:42 02/14/22 07:42 Labs: Laboratory Results - last 24 hr 02/13/22 02/13/22 02/13/22 12:30 13:00 13:00 MCV 91.5 MCH 31.5 MCHC 34.4 RDW 13.2 Plt Count 406 H MPV 9.4 Immature Gran % (Auto) 0.7 H Neut % (Auto) 77.7 H Lymph % (Auto) 15.7 L [place] % (Auto) 5.5 Eos % (Auto) 0.1 Baso % (Auto) 0.3 Lymph # (Auto) 2.2 [place] # (Auto) 0.8 Eos # (Auto) 0.0 Baso # (Auto) 0.0 Abs Immat Gran (auto) 0.10 H Absolute Neuts (auto) 11.1 H Absolute Nucleated RBC 0.000 Nucleated RBC % (auto) 0.0 Anion Gap 21 H Estim Creat Clear Calc 20.2 Estimated GFR 29 Random Glucose 113 Fasting Glucose Calcium 11.5 H D Total Bilirubin 1.1 H Direct Bilirubin 0.3 AST 26 ALT 29 Alkaline Phosphatase 180 H D Troponin I High Sens Total Protein 9.9 H D Albumin 5.0 Lipase 64 Urine Color Urine Appearance Urine pH Ur Specific [place] Urine Protein Urine Glucose (UA) Urine Ketones Urine Blood Urine Nitrite Ur Leukocyte Esterase Urine RBC Urine WBC Ur Squamous Epith Cells Urine Bacteria Hyaline Casts Urine Mucus Ur Random Sodium Ur Random Potassium Ur Random Chloride Stool Occult Blood NEGATIVE COVID-19 (BRIAN) COVID-Pipeline[employer] 02/13/22 02/13/22 02/13/22 13:00 13:00 15:36 MCV MCH MCHC RDW Plt Count MPV Immature Gran % (Auto) Neut % (Auto) Lymph % (Auto) [place] % (Auto) Eos % (Auto) Baso % (Auto) Lymph # (Auto) [place] # (Auto) Eos # (Auto) Baso # (Auto) Abs Immat Gran (auto) Absolute Neuts (auto) Absolute Nucleated RBC Nucleated RBC % (auto) Anion Gap Estim Creat Clear Calc Estimated GFR Random Glucose Fasting Glucose Calcium Total Bilirubin Direct Bilirubin AST ALT Alkaline Phosphatase Troponin I High Sens 8.9 Total Protein Albumin Lipase Urine Color YELLOW Urine Appearance HAZY Urine pH 5.0 Ur Specific [place] >= 1.030 H Urine Protein TRACE Urine Glucose (UA) NEG Urine Ketones NEG Urine Blood 3+ H Urine Nitrite NEG Ur Leukocyte Esterase NEG Urine RBC 10-14 H Urine WBC 0-2 Ur Squamous Epith Cells TRACE Urine Bacteria 1+ Hyaline Casts 1-4 Urine Mucus 1+ Ur Random Sodium Ur Random Potassium Ur Random Chloride Stool Occult Blood COVID-19 (BRIAN) Negative COVID-19 [employer] See Note 02/13/22 02/13/22 02/14/22 15:36 18:15 07:42 MCV 87.6 MCH 31.0 MCHC 35.4 RDW 12.9 Plt Count 354 MPV 9.4 Immature Gran % (Auto) Neut % (Auto) Lymph % (Auto) [place] % (Auto) Eos % (Auto) Baso % (Auto) Lymph # (Auto) [place] # (Auto) Eos # (Auto) Baso # (Auto) Abs Immat Gran (auto) Absolute Neuts (auto) Absolute Nucleated RBC 0.000 Nucleated RBC % (auto) 0.0 Anion Gap 23 H Estim Creat Clear Calc 23.9 Estimated GFR 36 Random Glucose 123 H Fasting Glucose Calcium 11.9 H Total Bilirubin Direct Bilirubin AST ALT Alkaline Phosphatase Troponin I High Sens Total Protein Albumin Lipase Urine Color Urine Appearance Urine pH Ur Specific [place] Urine Protein Urine Glucose (UA) Urine Ketones Urine Blood Urine Nitrite Ur Leukocyte Esterase Urine RBC Urine WBC Ur Squamous Epith Cells Urine Bacteria Hyaline Casts Urine Mucus Ur Random Sodium < 20.0 Ur Random Potassium 79.7 Ur Random Chloride < 20.0 Stool Occult Blood COVID-19 (BRIAN) COVID-19 [employer] 02/14/22 07:42 MCV MCH MCHC RDW Plt Count MPV Immature Gran % (Auto) Neut % (Auto) Lymph % (Auto) [place] % (Auto) Eos % (Auto) Baso % (Auto) Lymph # (Auto) [place] # (Auto) Eos # (Auto) Baso # (Auto) Abs Immat Gran (auto) Absolute Neuts (auto) Absolute Nucleated RBC Nucleated RBC % (auto) Anion Gap 15 Estim Creat Clear Calc 30.6 Estimated GFR 47 Random Glucose Fasting Glucose 141 H Calcium 10.3 H D Total Bilirubin Direct Bilirubin AST ALT Alkaline Phosphatase Troponin I High Sens Total Protein Albumin Lipase Urine Color Urine Appearance Urine pH Ur Specific [place] Urine Protein Urine Glucose (UA) Urine Ketones Urine Blood Urine Nitrite Ur Leukocyte Esterase Urine RBC Urine WBC Ur Squamous Epith Cells Urine Bacteria Hyaline Casts Urine Mucus Ur Random Sodium Ur Random Potassium Ur Random Chloride Stool Occult Blood COVID-19 (BRIAN) COVID-19 [employer] Assessment and Plan (1) Colon cancer: Status: Acute Plan 71M presented with FTT, MAXIMO, hyperkalemia FTT, MAXIMO, and hyperkalemia, due to dehydration from high output ostomy hyperkalemia and metabolic acidosis resolved will change ivf from bicarb to NS monitor closely nephro eval history of HTN normally on amlodipine, bp low normal now off meds, will monitor colon ca with moderat protein calorie malnutrition outpatient follow up dvt prophyalxis - hep sq full code Quality Stroke Does the patient have a stroke diagnosis?: No VTE Prior VTE?: No VTE Risk Level:: Medical - moderate - high VTE Device Contraindication: Treatment Not Indicated VTE Drug Contraindication: N/A - Med Ordered
[2022-02-14] MEDS: 0.9 % Sodium Chloride 1,000 ML 100 ML IVCONT ×2 (11:38→21:09)
--- NOTE | 2022-02-14 15:49 | PM.CNNEP ---
History of Present Illness Reason for Consult Consult date: 02/14/22 Reason for consult: MAXIMO, non-oliguric Chief Complaint Chief complaint: MAXIMO Hyperkalemia History of Present Illness Narrative: 71M presented with FTT, MAXIMO, hyperkalemia due to dehydration from high output ostomy hyperkalemia and metabolic acidosis resolved. Patient had colectomy with colostomy bag is placed at [facility] many years ago but has been noticing for the past 4 days increase liquid output from the ostomy, patient been complaining of generalized weakness. Review of Systems Review of Systems Yes all other systems are reviewed and are negative [facility] Past Medical History Medical History Colon cancer Direct inguinal hernia HTN (hypertension) Family History Family History Mother Colon cancer Surgical History Surgical History H/O colectomy Social History Social History Household Members: Family and Children Housing: House Do you presently have visiting nurse or other home services: Yes Alcohol intake: current Alcohol intake frequency: does not drink Alcohol type: beer and hard liquor Patient Tobacco Use Status: Former Tobacco user Meds Allergies Allergy/AdvReac Type Severity Reaction Status Date / Time No Known Allergies Allergy Unverified 06/22/20 19:11 [No Known Allergies*] Active Medications: Current Medications Acetaminophen (Acetaminophen 325 Mg Tablet) 650 mg PO Q6H PRN PRN Reason: Pain, Mild (Pain Scale 1-3) Heparin Sodium (Porcine) (Heparin Sodium,Porcine 5,000 Unit/Ml Vial) 5,000 unit SUBCUT Q12H [facility] Last Admin: 02/14/22 05:43 Dose: 5,000 unit Documented by: Sodium Chloride (Ns) 1,000 mls @ 100 mls/hr IVCONT .Q10H [facility] Last Admin: 02/14/22 11:38 Dose: 100 mls/hr Documented by: Loperamide HCl (Loperamide Hcl 2 Mg Capsule) 2 mg PO BID [facility] Multivitamins/Vitamin C (Multivitamin Tablet) 1 tab PO DAILY [facility] Pharmacy Consult (Consult Rx Perform Med Rec) 1 each MISCELLANE ONCE PRN PRN Reason: Consult order Sodium Chloride (0.9 % Sodium Chloride Flush 3 Ml Syringe) 3 ml IVFLUSH QSHIFT [facility] Last Admin: 02/14/22 09:07 Dose: Not Given Documented by: Home Medications Medication Instructions Recorded Confirmed Last Taken Type alendronate 70 mg tablet (Fosamax) 70 mg PO QWEEK 02/13/22 02/13/22 Unknown History aloe vera-collagen topical 5 ml TOPICAL Q2D 02/13/22 02/13/22 Unknown History solution (Aloe [place] Perineal) amlodipine 10 mg tablet 10 mg PO DAILY 02/13/22 02/13/22 02/13/22 History calcium carbonate 500 mg-vitamin 1 tab PO BID 02/13/22 02/13/22 02/13/22 History D3 5 mcg (200 unit) tablet (Calcium 500 + D) loperamide 2 mg capsule 2 mg PO BID 02/13/22 02/13/22 Unknown History melatonin 3 mg tablet 6 mg PO BEDTIME 02/13/22 02/13/22 02/12/22 History multivitamin 1 tab PO DAILY 02/13/22 02/13/22 02/13/22 History psyllium 1 tsp PO TID 02/13/22 02/13/22 02/13/22 History Physical Exam Vital Signs: Last Vital Signs Temp 97.6 F 02/14/22 14:08 Pulse 85 02/14/22 14:08 Resp 18 02/14/22 14:08 BP 151/64 H 02/14/22 14:35 Pulse Ox 98 02/14/22 14:08 BMI result Body Mass Index 16.3 Const General: cooperative and no acute distress Nutritional Appearance: cachectic and malnourished HEENT Head: Yes normal to inspection, Yes normocephalic and Yes atraumatic Neck Neck: Yes no JVD Resp Auscultation: clear to auscultation bilaterally Cardio Jugular venous distension: no JVD Rate: regular rate Rhythm: regular rhythm Heart sounds: S1 normal heart sound present and S2 normal heart sound present GI Other: colostomy in place with green liquid stool Auscultation: normal bowel sounds Skin Other: noted right upper chest retained chemoport Extrem General: Yes no clubbing, cyanosis or edema Results Lab Results Result Diagrams: 02/14/22 07:42 02/14/22 07:42 Lab results: Chemistry 02/13/22 02/13/22 02/14/22 13:00 18:15 07:42 Sodium 127 L 132 L 132 L Potassium 6.7 H* D 5.1 D 3.8 D Carbon Dioxide 18 L 12 L 29 BUN 82 H 74 H 67 H Creatinine 2.21 H 1.87 H 1.46 H Calcium 11.5 H D 11.9 H 10.3 H D Hematology 02/13/22 02/14/22 13:00 07:42 WBC 14.3 H 11.2 H Hgb 16.2 14.0 Plt Count 406 H 354 Urinalysis 02/13/22 15:36 Urine Color YELLOW Urine Appearance HAZY Urine pH 5.0 Ur Specific [place] >= 1.030 H Urine Protein TRACE Urine Glucose (UA) NEG Urine Ketones NEG Urine Blood 3+ H Urine Nitrite NEG Ur Leukocyte Esterase NEG Urine RBC 10-14 H Urine WBC 0-2 Ur Squamous Epith Cells TRACE Hyaline Casts 1-4 Assessment and Plan (1) Acute renal failure: Status: Acute Problem List: MAXIMO, non-oliguric Hyperkalemia FTT hematuria Hypovolemic hyponatremia #)MAXIMO, non-oliguric -Monitor renal panel daily I/O's BL S-Cr ~ 0.87 (06/2021) New MAXIMO with noted hematuria; check TPCR/spep/IF to rule out paraproteinemia given hx malignancy and noted protein gap. Suspect maximo from dehydration and increased colostomy output. He also had noted low urine sodium and hyperkalemia consistent with diminished distal sodium delivery. He has received IVF's and has noted S-Cr improvement with resolution of hyperkalemia. #) Hyponatremia: likely due to hypovolemia and poor nutritional status. Agree with IVF's. S-Na improving. suggest nutritional supplementation such as ensure/boost daily. 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 (2) Acute hyperkalemia: Status: Acute Procedures Date of Service Date of Service: 02/14/22
[2022-02-14] MEDS: Loperamide HCl 2 MG CAPSULE PO (20:59)
[2022-02-14] MEDS: 0.9 % Sodium Chloride Flush 3 ML SYRINGE IVFLUSH (21:11)
[2022-02-15] VITALS (7 sets, daily range): BP systolic 115–178; BP diastolic 54–67; PULSE 68–78; RESP 16–22; TEMP 36.7–37.3; O2SAT 98–100; BMI 16.3
[2022-02-15] MEDS: 0.9 % Sodium Chloride 1,000 ML 100 ML IVCONT ×2 (04:01→16:49)
[2022-02-15] MEDS: Heparin Sodium,Porcine 5,000 UNIT/ML VIAL 5000 UNIT SUBCUT (05:54)
[2022-02-15 06:06] LABS: Hematocrit 36.5 % (42.0-52.0); Hemoglobin 12.8 g/dl (14.0-18.0); Mean Corpuscular HGB Conc 35.1 g/dl (31.0-36.0); Mean Corpuscular Hemoglobin 31.6 pg (27.0-33.0); Mean Corpuscular Volume 90.1 fL (80.0-98.0); Platelet Count 314 X10*3/uL (160-400); Red Blood Count 4.05 X10*6/uL (4.60-5.80); Red Cell Distribution Width 13.1 % (11.0-16.0); White Blood Count 14.3 X10*3/uL (4.8-10.8)
[2022-02-15 06:20] LABS: Anion Gap 15 (12-20); Blood Urea Nitrogen 52 mg/dL (9-16); Calcium 9.7 mg/dL (8.4-10.2); Carbon Dioxide 27 mmol/L (22-29); Chloride 96 mmol/L (96-108); Creatinine Clr Calc Pharmacy 40.3; Estimated Glomerular Filt Rate > 60; Glucose Fasting 108 mg/dL (60-99); Potassium 3.8 mmol/L (3.3-5.1); Sodium 134 mmol/L (135-145)
[2022-02-15] MEDS: Multivitamin TABLET 1 TAB PO (09:53)
[2022-02-15] MEDS: 0.9 % Sodium Chloride Flush 3 ML SYRINGE IVFLUSH ×3 (09:53→20:39)
[2022-02-15] MEDS: Loperamide HCl 2 MG CAPSULE PO (09:53)
[2022-02-15] MEDS: Acetaminophen 325 MG TABLET 650 MG PO ×2 (09:55→16:54)
--- NOTE | 2022-02-15 12:29 | HO.PM.IMPN ---
Subjective Subjective Date of Service: 02/15/22 Interval History: cc: weakness interval history:no appetite Cardiovascular Cardiovascular: Reports no additional cardiovascular complaints Gastrointestinal Gastrointestinal: Reports no additional gastrointestinal complaints Physical Exam Vital Signs: Vital Signs: Last Vital Signs Temp 98.8 F 02/15/22 11:51 Pulse 77 02/15/22 11:51 Resp 20 02/15/22 11:51 BP 162/63 H 02/15/22 11:51 Pulse Ox 100 02/15/22 11:51 BMI result Body Mass Index 16.3 General: AO X 3, frail appearing Resp:? CTA bilateral, no accessory muscles used CVS: S1,S2,RRR GI: soft, non tender, non distended Neuro:? motor grossly intact, alert Psych: appropriate affect, appropriate insight? Objective Data Active Medications Acetaminophen (Acetaminophen 325 Mg Tablet) 650 mg PO Q6H PRN PRN Reason: Pain, Mild (Pain Scale 1-3) Last Admin: 02/15/22 09:55 Dose: 650 mg Documented by: HARRIS Amlodipine Besylate (Amlodipine Besylate 5 Mg Tablet) 5 mg PO DAILY [facility]; Protocol Heparin Sodium (Porcine) (Heparin Sodium,Porcine 5,000 Unit/Ml Vial) 5,000 unit SUBCUT Q12H [facility] Last Admin: 02/15/22 05:54 Dose: 5,000 unit Documented by: HESHAM Sodium Chloride (Ns) 1,000 mls @ 100 mls/hr IVCONT .Q10H [facility] Last Admin: 02/15/22 04:01 Dose: 100 mls/hr Documented by: HESHAM Loperamide HCl (Loperamide Hcl 2 Mg Capsule) 2 mg PO BID [facility] Last Admin: 02/15/22 09:53 Dose: 2 mg Documented by: HARRIS Multivitamins/Vitamin C (Multivitamin Tablet) 1 tab PO DAILY [facility] Last Admin: 02/15/22 09:53 Dose: 1 tab Documented by: HARRIS Pharmacy Consult (Consult Rx Perform Med Rec) 1 each MISCELLANE ONCE PRN PRN Reason: Consult order Sodium Chloride (0.9 % Sodium Chloride Flush 3 Ml Syringe) 3 ml IVFLUSH QSHIFT [facility] Last Admin: 02/15/22 09:53 Dose: 3 ml Documented by: HARRIS Labs CBC & Chem 7: 02/15/22 05:35 02/15/22 05:35 Labs: Laboratory Results - last 24 hr 02/15/22 02/15/22 05:35 05:35 MCV 90.1 MCH 31.6 MCHC 35.1 RDW 13.1 Plt Count 314 MPV 10.0 Absolute Nucleated RBC 0.000 Nucleated RBC % (auto) 0.0 Anion Gap 15 Estim Creat Clear Calc 40.3 Estimated GFR > 60 Fasting Glucose 108 H Calcium 9.7 Assessment and Plan (1) Colon cancer: Status: Acute Plan 71M presented with FTT, MAXIMO, hyperkalemia FTT, MAXIMO, and hyperkalemia, due to dehydration from high output ostomy and poor intake hyperkalemia and metabolic acidosis resolved MAXIMO significantly improved continue NS monitor closely nephro following history of HTN will restart at half home dose amlodipine - 5mg 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
--- NOTE | 2022-02-15 14:10 | MHC.CLN ---
PT IS MODERATELY MALNOURISHED PT IS MILDLY DEPLETED IN SUBCUTANEOUS FAT AND MUSCLE MASS, BMI 16.3 WITH 13% WT LOSS X 8 MONTHS AND POOR PO INTAKE X 2 WEEKS MD NOTED MODERATE PCM R/T COLON CA DIET RX: REGULAR-APPROPRIATE RECOMMEND ADDING ENSURE BID TO INCREASE KCALS SUPP TO PROVIDE 700KCALS, 40G PROTEIN MONITOR PO INTAKE CLOSELY SEE ALSO FULL CLINICAL NUTRITION ASSESSMENT
--- NOTE | 2022-02-15 16:02 | MHC.CM.PN ---
VM LEFT FOR PTS DAUGHTER, LAURA [phone], REQUESTING A RETURN CALL TO OBTAIN BASELINE INFORMATION AND DISCUSS DC PLANNING.
--- NOTE | 2022-02-15 17:08 | PM.PNNEP ---
Subjective Subjective Date of Service: 02/15/22 Interval history: cc: weakness interval history:no appetite Chart Reviewed. Events noted. Physical Exam Vital Signs: Vital Signs: Last Vital Signs Temp 98.9 F 02/15/22 15:28 Pulse 68 02/15/22 15:28 Resp 16 02/15/22 15:28 BP 178/67 H 02/15/22 15:28 Pulse Ox 98 02/15/22 15:28 BMI result Body Mass Index 16.3 Const: General: cooperative, comfortable and no acute distress Orientation/consciousness: patient oriented x3 HEENT: Head: Yes normocephalic and Yes atraumatic Neck: Neck: Yes no JVD Resp: Auscultation: clear to auscultation bilaterally Cardio: Jugular venous distension: no JVD Rate: regular rate Rhythm: regular rhythm Heart sounds: S1 normal heart sound present and S2 normal heart sound present GI: Auscultation: normal bowel sounds Neuro: General: patient oriented x3 and no focal motor deficits Extrem: General: Yes no clubbing, cyanosis or edema Objective Data Labs CBC & Chem 7: 02/15/22 05:35 02/15/22 05:35 Labs: Laboratory Results - last 24 hr 02/15/22 02/15/22 05:35 05:35 WBC 14.3 H RBC 4.05 L Hgb 12.8 L Hct 36.5 L MCV 90.1 MCH 31.6 MCHC 35.1 RDW 13.1 Plt Count 314 MPV 10.0 Absolute Nucleated RBC 0.000 Nucleated RBC % (auto) 0.0 Sodium 134 L Potassium 3.8 Chloride 96 Carbon Dioxide 27 Anion Gap 15 BUN 52 H Creatinine 1.11 Estim Creat Clear Calc 40.3 Estimated GFR > 60 Fasting Glucose 108 H Calcium 9.7 Procedures Date of Service Date of Service: 02/15/22 Assessment & Plan Assessment and plan (1) Acute renal failure: Status: Acute (2) Acute hyperkalemia: Status: Acute Plan Problem List: MAXIMO, non-oliguric Hyperkalemia FTT hematuria Hypovolemic hyponatremia #)MAXIMO, non-oliguric -Monitor renal panel daily I/O's BL S-Cr ~ 0.87 (06/2021) New MAXIMO with noted hematuria; check TPCR/spep/IF to rule out paraproteinemia given hx malignancy and noted protein gap. Serological workup still pending. Suspect maximo from dehydration and increased colostomy output. Need to monitor for high output ostomy. Increase fiber intake. S-Cr has trended toward BL with IVF s. Hyperkalemia resolved. #) Hyponatremia: likely due to hypovolemia and poor nutritional status. Agree with IVF's. S-Na improving. suggest nutritional supplementation such as ensure/boost daily. #) CKD-MBD? Pth and vit D Time Spent With Patient Time: Total time spent is greater than 50% in coordination of care (as documented) at patient's floor/unit and/or counseling patient: Progress Note: Quality Stroke Does the patient have a stroke diagnosis?: No
[2022-02-16] MEDS: oxyCODONE HCl Immed Release 5 MG TABLET PO ×3 (01:04→17:33)
[2022-02-16] MEDS: 0.9 % Sodium Chloride 1,000 ML 100 ML IVCONT ×2 (03:10→14:23)
[2022-02-16 04:00] VITALS: BP 148/66; PULSE 65; RESP 18; TEMP 36.6; O2SAT 98
[2022-02-16] MEDS: Heparin Sodium,Porcine 5,000 UNIT/ML VIAL 5000 UNIT SUBCUT ×2 (05:27→17:33)
[2022-02-16 07:07] LABS: Hematocrit 34.7 % (42.0-52.0); Hemoglobin 11.7 g/dl (14.0-18.0); Mean Corpuscular HGB Conc 33.7 g/dl (31.0-36.0); Mean Corpuscular Hemoglobin 31.1 pg (27.0-33.0); Mean Corpuscular Volume 92.3 fL (80.0-98.0); Platelet Count 294 X10*3/uL (160-400); Red Blood Count 3.76 X10*6/uL (4.60-5.80); Red Cell Distribution Width 13.3 % (11.0-16.0); White Blood Count 16.1 X10*3/uL (4.8-10.8)
[2022-02-16 07:15] VITALS: BP 165/70; PULSE 70; RESP 20; TEMP 36.7; O2SAT 97
[2022-02-16 07:31] LABS: Anion Gap 13 (12-20); Blood Urea Nitrogen 20 mg/dL (9-16); Calcium 8.9 mg/dL (8.4-10.2); Carbon Dioxide 23 mmol/L (22-29); Chloride 104 mmol/L (96-108); Creatinine Clr Calc Pharmacy 60.4; Estimated Glomerular Filt Rate > 60; Glucose Fasting 95 mg/dL (60-99); Potassium 3.7 mmol/L (3.3-5.1); Sodium 136 mmol/L (135-145)
[2022-02-16] MEDS: Acetaminophen 325 MG TABLET 650 MG PO (08:58)
[2022-02-16] MEDS: Loperamide HCl 2 MG CAPSULE PO ×2 (08:58→22:12)
[2022-02-16] MEDS: amLODIPine Besylate 5 MG TABLET PO (08:59)
[2022-02-16] MEDS: Multivitamin TABLET 1 TAB PO (08:59)
--- NOTE | 2022-02-16 10:33 | HO.PM.IMPN ---
Subjective Subjective Date of Service: 02/16/22 Interval History: cc: weakness interval history:no appetite, back pain Respiratory Respiratory: Reports no additional respiratory complaints Gastrointestinal Gastrointestinal: Reports no additional gastrointestinal complaints Physical Exam Vital Signs: Vital Signs: Last Vital Signs Temp 98.0 F 02/16/22 07:15 Pulse 70 02/16/22 07:15 Resp 20 02/16/22 07:15 BP 165/70 H 02/16/22 07:15 Pulse Ox 97 02/16/22 07:15 BMI result Body Mass Index 16.3 General: AO X 3, frail appearing Resp:? CTA bilateral, no accessory muscles used CVS: S1,S2,RRR GI: soft, non tender, non distended Neuro:? motor grossly intact, alert Psych: appropriate affect, appropriate insight? Objective Data Active Medications Acetaminophen (Acetaminophen 325 Mg Tablet) 650 mg PO Q6H PRN PRN Reason: Pain, Mild (Pain Scale 1-3) Last Admin: 02/16/22 08:58 Dose: 650 mg Documented by: VENUS Amlodipine Besylate (Amlodipine Besylate 5 Mg Tablet) 5 mg PO DAILY [facility]; Protocol Last Admin: 02/16/22 08:59 Dose: 5 mg Documented by: VENUS Heparin Sodium (Porcine) (Heparin Sodium,Porcine 5,000 Unit/Ml Vial) 5,000 unit SUBCUT Q12H [facility] Last Admin: 02/16/22 05:27 Dose: 5,000 unit Documented by: SUPA Sodium Chloride (Ns) 1,000 mls @ 100 mls/hr IVCONT .Q10H [facility] Last Admin: 02/16/22 03:10 Dose: 100 mls/hr Documented by: SUPA Loperamide HCl (Loperamide Hcl 2 Mg Capsule) 2 mg PO BID [facility] Last Admin: 02/16/22 08:58 Dose: 2 mg Documented by: VENUS Multivitamins/Vitamin C (Multivitamin Tablet) 1 tab PO DAILY [facility] Last Admin: 02/16/22 08:59 Dose: 1 tab Documented by: VENUS Pharmacy Consult (Consult Rx Perform Med Rec) 1 each MISCELLANE ONCE PRN PRN Reason: Consult order Sodium Chloride (0.9 % Sodium Chloride Flush 3 Ml Syringe) 3 ml IVFLUSH QSHIFT [facility] Last Admin: 02/16/22 09:01 Dose: Not Given Documented by: VENUS Non-Admin Reason: IV Running Labs CBC & Chem 7: 02/16/22 06:31 02/16/22 06:31 Labs: Laboratory Results - last 24 hr 02/16/22 02/16/22 06:31 06:31 MCV 92.3 MCH 31.1 MCHC 33.7 RDW 13.3 Plt Count 294 MPV 10.0 Absolute Nucleated RBC 0.000 Nucleated RBC % (auto) 0.0 Anion Gap 13 Estim Creat Clear Calc 60.4 Estimated GFR > 60 Fasting Glucose 95 Calcium 8.9 D Assessment and Plan (1) Colon cancer: Status: Acute Plan 71M presented with FTT, MAXIMO, hyperkalemia FTT, MAXIMO, and hyperkalemia, due to dehydration from high output ostomy and poor intake hyperkalemia, maximo, and metabolic acidosis resolved nephro following history of HTN amlodipine - 5mg stage IV colon ca with gastric mets with moderate protein calorie malnutrition outpatient follow up dvt prophyalxis - hep sq full code reason for continued hospitalization: requriing ivf fluids and close bmp monitoring for severe maximo Quality Stroke Does the patient have a stroke diagnosis?: No VTE Prior VTE?: No VTE Risk Level:: Medical - moderate - high VTE Device Contraindication: Treatment Not Indicated VTE Drug Contraindication: N/A - Med Ordered
[2022-02-16 11:34] VITALS: BP 169/59; PULSE 68; RESP 18; TEMP 36.8; O2SAT 98
--- NOTE | 2022-02-16 14:42 | MHC.CM.PN ---
met with pt wed iscussed physical therapys receommendation for mukul with eri filed a hcp with t/m left for dgter re same
[2022-02-16 15:23] VITALS: BP 160/78; PULSE 72; RESP 18; TEMP 36.8; O2SAT 97
[2022-02-16 19:14] VITALS: BP 176/58; PULSE 80; RESP 20; TEMP 37.3; O2SAT 99
[2022-02-16] MEDS: 0.9 % Sodium Chloride Flush 3 ML SYRINGE IVFLUSH (22:12)
--- NOTE | 2022-02-16 22:48 | PM.PNNEP ---
Subjective Subjective Date of Service: 02/16/22 Interval history: CHart Reviewed. Events noted. Physical Exam Vital Signs: Vital Signs: Last Vital Signs Temp 99.2 F 02/16/22 19:14 Pulse 80 02/16/22 19:14 Resp 20 02/16/22 19:14 BP 176/58 H 02/16/22 19:14 Pulse Ox 99 02/16/22 19:14 BMI result Body Mass Index 16.3 Const: General: cooperative and no acute distress HEENT: Head: Yes normocephalic and Yes atraumatic Neck: Neck: Yes no JVD Resp: Auscultation: clear to auscultation bilaterally Cardio: Jugular venous distension: no JVD GI: Auscultation: normal bowel sounds Neuro: General: no focal motor deficits Extrem: General: Yes no clubbing, cyanosis or edema Objective Data Labs CBC & Chem 7: 02/16/22 06:31 02/16/22 06:31 Labs: Laboratory Results - last 24 hr 02/16/22 02/16/22 06:31 06:31 WBC 16.1 H RBC 3.76 L Hgb 11.7 L Hct 34.7 L MCV 92.3 MCH 31.1 MCHC 33.7 RDW 13.3 Plt Count 294 MPV 10.0 Absolute Nucleated RBC 0.000 Nucleated RBC % (auto) 0.0 Sodium 136 Potassium 3.7 Chloride 104 Carbon Dioxide 23 Anion Gap 13 BUN 20 H D Creatinine 0.74 Estim Creat Clear Calc 60.4 Estimated GFR > 60 Fasting Glucose 95 Calcium 8.9 D Procedures Date of Service Date of Service: 02/16/22 Assessment & Plan Assessment and plan (1) Acute renal failure: Status: Acute Plan Problem List: MAXIMO, non-oliguric Hyperkalemia FTT hematuria Hypovolemic hyponatremia #)MAXIMO, non-oliguric -Monitor renal panel daily I/O's BL S-Cr ~ 0.87 (06/2021) New MAXIMO with noted hematuria; check TPCR/spep/IF to rule out paraproteinemia given hx malignancy and noted protein gap. Serological workup still pending. Suspect maximo from dehydration and increased colostomy output. Need to monitor for high output ostomy. Increase fiber intake. S-Cr has trended toward BL with IVF's. Hyperkalemia resolved. #) Hyponatremia: likely due to hypovolemia and poor nutritional status. Agree with IVF's. S-Na improving. suggest nutritional supplementation such as ensure/boost daily. Will have patient follow up with nephrology outpatient. Will sign off. Call with questions. Time Spent With Patient Time: Total time spent is greater than 50% in coordination of care (as documented) at patient's floor/unit and/or counseling patient: Progress Note: Quality Stroke Does the patient have a stroke diagnosis?: No
[2022-02-17] VITALS: PULSE 93; RESP 16; TEMP 37.1; O2SAT 99
[2022-02-17] MEDS: 0.9 % Sodium Chloride 1,000 ML 100 ML IVCONT ×3 (00:32→21:05)
[2022-02-17] MEDS: oxyCODONE HCl Immed Release 5 MG TABLET PO ×4 (03:59→21:05)
[2022-02-17 04:00] VITALS: BP 194/68; PULSE 62; RESP 16; TEMP 37.1; O2SAT 98
[2022-02-17] MEDS: Heparin Sodium,Porcine 5,000 UNIT/ML VIAL 5000 UNIT SUBCUT ×2 (04:01→16:53)
[2022-02-17 07:15] LABS: Hematocrit 34.7 % (42.0-52.0); Hemoglobin 11.8 g/dl (14.0-18.0); Mean Corpuscular Hemoglobin 31.3 pg (27.0-33.0); Mean Platelet Volume 9.6 fL (9.4-12.4); Platelet Count 287 X10*3/uL (160-400); Red Blood Count 3.77 X10*6/uL (4.60-5.80); Red Cell Distribution Width 13.2 % (11.0-16.0)
[2022-02-17 07:39] LABS: Anion Gap 9 (12-20); Blood Urea Nitrogen 7 mg/dL (9-16); Calcium 8.8 mg/dL (8.4-10.2); Carbon Dioxide 29 mmol/L (22-29); Chloride 98 mmol/L (96-108); Creatinine Clr Calc Pharmacy 66.8; Estimated Glomerular Filt Rate > 60; Glucose Fasting 100 mg/dL (60-99); Potassium 3.2 mmol/L (3.3-5.1); Sodium 133 mmol/L (135-145)
[2022-02-17 07:50] VITALS: BP 186/71; PULSE 75; RESP 18; TEMP 37.3; O2SAT 98
--- NOTE | 2022-02-17 09:51 | P.PNIM_ITS ---
Subjective Subjective Date of Service: 02/17/22 Interval History: cc: weakness interval history:no appetite, back pain Cardiovascular Cardiovascular: Reports no additional cardiovascular complaints Respiratory Respiratory: Reports no additional respiratory complaints Physical Exam Vital Signs: Vital Signs: Last Vital Signs Temp 99.2 F 02/17/22 07:50 Pulse 75 02/17/22 07:50 Resp 18 02/17/22 07:50 BP 186/71 H 02/17/22 07:50 Pulse Ox 98 02/17/22 07:50 BMI result Body Mass Index 16.3 General: AO X 3, frail appearing Resp:? CTA bilateral, no accessory muscles used CVS: S1,S2,RRR GI: soft, non tender, non distended Neuro:? motor grossly intact, alert Psych: appropriate affect, appropriate insight? Objective Data Active Medications Acetaminophen (Acetaminophen 325 Mg Tablet) 650 mg PO Q6H PRN PRN Reason: Pain, Mild (Pain Scale 1-3) Last Admin: 02/16/22 08:58 Dose: 650 mg Documented by: VENUS Amlodipine Besylate (Amlodipine Besylate 5 Mg Tablet) 5 mg PO DAILY [facility]; Protocol Last Admin: 02/16/22 08:59 Dose: 5 mg Documented by: VENUS Heparin Sodium (Porcine) (Heparin Sodium,Porcine 5,000 Unit/Ml Vial) 5,000 unit SUBCUT Q12H [facility] Last Admin: 02/17/22 04:01 Dose: 5,000 unit Documented by: JAD Sodium Chloride (Ns) 1,000 mls @ 100 mls/hr IVCONT .Q10H [facility] Last Admin: 02/17/22 00:32 Dose: 100 mls/hr Documented by: JAD Loperamide HCl (Loperamide Hcl 2 Mg Capsule) 2 mg PO BID [facility] Last Admin: 02/16/22 22:12 Dose: 2 mg Documented by: CAROL Multivitamins/Vitamin C (Multivitamin Tablet) 1 tab PO DAILY [facility] Last Admin: 02/16/22 08:59 Dose: 1 tab Documented by: VENUS Oxycodone HCl (Oxycodone Hcl Immed Release 5 Mg Tablet) 5 mg PO Q4H PRN PRN Reason: moderate pain Last Admin: 02/17/22 03:59 Dose: 5 mg Documented by: JAD Pharmacy Consult (Consult Rx Perform Med Rec) 1 each MISCELLANE ONCE PRN PRN Reason: Consult order Sodium Chloride (0.9 % Sodium Chloride Flush 3 Ml Syringe) 3 ml IVFLUSH QSHIFT [facility] Last Admin: 02/16/22 22:12 Dose: 3 ml Documented by: CAROL Labs CBC & Chem 7: 02/17/22 07:01 02/17/22 07:01 Labs: Laboratory Results - last 24 hr 02/17/22 02/17/22 07:01 07:01 MCV 92.0 MCH 31.3 MCHC 34.0 RDW 13.2 Plt Count 287 MPV 9.6 Absolute Nucleated RBC 0.000 Nucleated RBC % (auto) 0.0 Anion Gap 9 L Estim Creat Clear Calc 66.8 Estimated GFR > 60 Fasting Glucose 100 H Calcium 8.8 Assessment and Plan (1) Colon cancer: Status: Acute Plan 71M presented with FTT, MAXIMO, hyperkalemia FTT, MAXIMO, and hyperkalemia, due to dehydration from high output ostomy and poor intake hyperkalemia, maximo, and metabolic acidosis resolved history of HTN amlodipine - will increase back up to 10mg daily stage IV colon ca with gastric mets with moderate protein calorie malnutrition outpatient follow up dvt prophyalxis - hep sq full code reason for continued hospitalization:safe dispo planning Quality Stroke Does the patient have a stroke diagnosis?: No VTE Prior VTE?: No VTE Risk Level:: Medical - moderate - high VTE Device Contraindication: Treatment Not Indicated VTE Drug Contraindication: N/A - Med Ordered
[2022-02-17] MEDS: Loperamide HCl 2 MG CAPSULE PO ×2 (10:15→21:05)
[2022-02-17] MEDS: Multivitamin TABLET 1 TAB PO (10:17)
--- NOTE | 2022-02-17 11:01 | PC.NURSE ---
At 1045 pt's sofia catheter was removed per .
[2022-02-17 11:10] VITALS: BP 140/60; PULSE 66; RESP 18; TEMP 37.2; O2SAT 99
[2022-02-17 19:25] VITALS: BP 150/67; PULSE 84; RESP 18; TEMP 36.9; O2SAT 95
[2022-02-17] MEDS: Acetaminophen 325 MG TABLET 650 MG PO (22:28)
[2022-02-17 23:54] VITALS: BP 163/61; PULSE 78; RESP 16; TEMP 37.2; O2SAT 96
[2022-02-18] MEDS: oxyCODONE HCl Immed Release 5 MG TABLET PO ×5 (03:32→21:51)
[2022-02-18 03:55] VITALS: BP 176/80; PULSE 83; RESP 18; TEMP 36.6; O2SAT 97
[2022-02-18] MEDS: 0.9 % Sodium Chloride 1,000 ML 100 ML IVCONT (05:49)
[2022-02-18] MEDS: Heparin Sodium,Porcine 5,000 UNIT/ML VIAL 5000 UNIT SUBCUT ×2 (05:49→17:59)
[2022-02-18] MEDS: Acetaminophen 325 MG TABLET 650 MG PO (07:38)
[2022-02-18] MEDS: Multivitamin TABLET 1 TAB PO (07:38)
[2022-02-18] MEDS: Loperamide HCl 2 MG CAPSULE PO ×2 (07:39→21:11)
[2022-02-18] MEDS: amLODIPine Besylate 10 MG TABLET PO (07:39)
[2022-02-18 07:42] VITALS: BP 193/74; PULSE 77; RESP 36; TEMP 37.6; O2SAT 98
[2022-02-18 08:52] VITALS: BP 193/74; PULSE 77; O2SAT 98
[2022-02-18] MEDS: Potassium Chloride ER 20 MEQ TAB.ER.PRT 40 MEQ PO (09:56)
--- NOTE | 2022-02-18 10:08 | HO.PM.IMPN ---
Subjective Subjective Date of Service: 02/18/22 Interval History: cc: ftt interval history: no complaints Cardiovascular Cardiovascular: Reports no additional cardiovascular complaints Respiratory Respiratory: Reports no additional respiratory complaints Physical Exam Vital Signs: Vital Signs: Last Vital Signs Temp 99.6 F 02/18/22 07:42 Pulse 77 02/18/22 08:52 Resp 36 H 02/18/22 07:42 BP 193/74 H 02/18/22 08:52 Pulse Ox 98 02/18/22 08:52 BMI result Body Mass Index 16.3 General: AO X 3, frail appearing Resp:? CTA bilateral, no accessory muscles used CVS: S1,S2,RRR GI: soft, non tender, non distended Neuro:? motor grossly intact, alert Psych: appropriate affect, appropriate insight? Objective Data Active Medications Acetaminophen (Acetaminophen 325 Mg Tablet) 650 mg PO Q6H PRN PRN Reason: Pain, Mild (Pain Scale 1-3) Last Admin: 02/18/22 07:38 Dose: 650 mg Documented by: ONUR Amlodipine Besylate (Amlodipine Besylate 10 Mg Tablet) 10 mg PO DAILY [facility]; Protocol Last Admin: 02/18/22 07:39 Dose: 10 mg Documented by: ONUR Heparin Sodium (Porcine) (Heparin Sodium,Porcine 5,000 Unit/Ml Vial) 5,000 unit SUBCUT Q12H [facility] Last Admin: 02/18/22 05:49 Dose: 5,000 unit Documented by: JUAREZ Sodium Chloride (Ns) 1,000 mls @ 100 mls/hr IVCONT .Q10H [facility] Last Admin: 02/18/22 05:49 Dose: 100 mls/hr Documented by: JUAREZ Loperamide HCl (Loperamide Hcl 2 Mg Capsule) 2 mg PO BID [facility] Last Admin: 02/18/22 07:39 Dose: 2 mg Documented by: ONUR Multivitamins/Vitamin C (Multivitamin Tablet) 1 tab PO DAILY [facility] Last Admin: 02/18/22 07:38 Dose: 1 tab Documented by: ONUR Oxycodone HCl (Oxycodone Hcl Immed Release 5 Mg Tablet) 5 mg PO Q4H PRN PRN Reason: moderate pain Last Admin: 02/18/22 07:38 Dose: 5 mg Documented by: ONUR Pharmacy Consult (Consult Rx Perform Med Rec) 1 each MISCELLANE ONCE PRN PRN Reason: Consult order Sodium Chloride (0.9 % Sodium Chloride Flush 3 Ml Syringe) 3 ml IVFLUSH QSHIFT [facility] Last Admin: 02/18/22 07:39 Dose: Not Given Documented by: ONUR Non-Admin Reason: IV Running Labs CBC & Chem 7: 02/17/22 07:01 02/17/22 07:01 Assessment and Plan (1) Colon cancer: Status: Acute Plan 71M presented with FTT, MAXIMO, hyperkalemia FTT, MAXIMO, and hyperkalemia, due to dehydration from high output ostomy and poor intake hyperkalemia, maximo, and metabolic acidosis resolved history of HTN amlodipine 10mg daily stage IV colon ca with gastric mets with moderate protein calorie malnutrition outpatient follow up dvt prophyalxis - hep sq full code reason for continued hospitalization:safe dispo planning Quality Stroke Does the patient have a stroke diagnosis?: No VTE Prior VTE?: No VTE Risk Level:: Medical - moderate - high VTE Device Contraindication: Treatment Not Indicated VTE Drug Contraindication: N/A - Med Ordered
--- NOTE | 2022-02-18 11:34 | MHC.CLN ---
F/U PT IS MODERATELY MALNOURISHED SEE FULL CLINICAL NUTRITION ASSESSMENT DATED 02/15/22 VARIABLE PO INTAKE DIET RX: REGULAR-APPROPRIATE PT RECEIVING ENSURE BID TO INCREASE KCALS PROVIDES 700KCALS, 40G PROTEIN CONTINUE TO MONITOR PO INTAKE CLOSELY
[2022-02-18 11:43] VITALS: BP 148/66; PULSE 72; RESP 16; TEMP 37.1; O2SAT 97
[2022-02-18 14:31] LABS: IgA 421 mg/dL (70-320); IgG 1304 mg/dL (600-1540); IgM 57 mg/dL (50-300)
[2022-02-18] MEDS: 0.9 % Sodium Chloride Flush 3 ML SYRINGE IVFLUSH ×2 (16:29→21:11)
[2022-02-18 19:55] VITALS: BP 152/66; PULSE 82; RESP 18; TEMP 37.1; O2SAT 97
[2022-02-18 21:28] LABS: PES - Abn Protein Band 1 0.2 g/dL (NONE DETECTED); Prot Elec - Alpha1 0.3 g/dL (0.2-0.3); Prot Elec - Alpha2 1.1 g/dL (0.5-0.9); Prot Elec - Beta 1 0.5 g/dL (0.4-0.6); Prot Elec - Beta 2 0.5 g/dL (0.2-0.5); Prot Elec - Gamma 1.2 g/dL (0.8-1.7); Prot Elec - Total Protein 7.6 g/dL (6.1-8.1)
[2022-02-19] VITALS: BP 160/65; PULSE 85; RESP 18; TEMP 37.1; O2SAT 97
[2022-02-19] MEDS: Acetaminophen 325 MG TABLET 650 MG PO ×2 (02:51→11:11)
[2022-02-19] MEDS: oxyCODONE HCl Immed Release 5 MG TABLET PO ×2 (02:51→08:30)
[2022-02-19 03:39] VITALS: BP 127/50; PULSE 73; RESP 20; TEMP 37; O2SAT 92
[2022-02-19] MEDS: Heparin Sodium,Porcine 5,000 UNIT/ML VIAL 5000 UNIT SUBCUT (06:34)
[2022-02-19 08:00] VITALS: BP 127/60; PULSE 75; RESP 18; TEMP 36.2; O2SAT 97
[2022-02-19] MEDS: Loperamide HCl 2 MG CAPSULE PO (08:28)
[2022-02-19] MEDS: amLODIPine Besylate 10 MG TABLET PO (08:28)
[2022-02-19] MEDS: 0.9 % Sodium Chloride Flush 3 ML SYRINGE IVFLUSH (08:28)
[2022-02-19] MEDS: Multivitamin TABLET 1 TAB PO (08:28)
--- NOTE | 2022-02-19 10:31 | P.DS_ITS ---
DS: Providers Provider Date of Service: 02/19/22 Date of admission: 02/13/22 15:39 Primary care physician: BERNICE Keene Consults: 02/13/22 14:38 Consult to Nephrology Stat Consulting Provider: Abdulaziz Guzman Reason for consultation: acute renal failure Has provider been notified: Yes DS: Diagnosis Discharge Diagnosis (1) Colon cancer: Status: Acute DS: Summary Hospital Course Hospital Course: from intiial hpi: Chief Complaint: lethargy, high output colostomy history from patient via primary class teacher, darryl historian 71M presented with weakness, high output from colostomy and back pain, for about 1-2 weeks ptp. 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 he reports to be in remission. he was at PCPs office who felt patient looked poor, reported 1-2 weeks anorexia and sent patient to ED. in ED found to be in MAXIMO with creatinine of 2.21, hypoerkalemia with potassium of 6.7. was given 30gm kayexylate, cagluconate, IV fluids. hospital course: Patient was admitted for failure to thrive, acute kidney injury and hyperkalemia due to dehydration from high output ostomy and poor intake Due to metastatic colon CA with gastric meds and moderate protein calorie malnutrition. Patient was treated with IV fluids and renal function returned to normal, hyperkalemia resolved, metabolic acidosis resolved. His appetite is poor and he is encouraged to continue p.o. intake with supplements. For his hypertension he will continue on amlodipine 10 mg daily. Patient was evaluated by Physical therapy, was noted to be ambulating adequately and recommendations were for ho me with Continued physical therapy. Time Spent with Patient Time attestation: Total time spent providing and/or coordinating discharge services: Discharge coordination time: Greater than 30 minutes Quality: Safe Use of Opioids Does Pt have an Active Cancer Diagnosis on the Problem List?: Yes Opioid Measure Date for [facility] Report: 01/20/22 Opioid Measure Time for [facility] Report: 10:31 Quality: Stroke Does the patient have a stroke diagnosis?: No Physical Exam Vital Signs: Vital Signs: Last Vital Signs Temp 97.1 F 02/19/22 08:00 Pulse 75 02/19/22 08:00 Resp 18 02/19/22 08:00 BP 127/60 02/19/22 08:00 Pulse Ox 97 02/19/22 08:00 BMI result Body Mass Index 16.3 General: AO X 3, frail appearing Resp:? CTA bilateral, no accessory muscles used CVS: S1,S2,RRR GI: soft, non tender, non distended Neuro:? motor grossly intact, alert Psych: appropriate affect, appropriate insight? DS: Data Data Completed and Pending Labs on day of discharge: Laboratory Results - last 24 hr 02/14/22 15:53 Total Protein (PEP) 7.6 Albumin (PEP) 4.0 Egdxa-7-Wcldtqisi 0.3 Rctva-0-Aspbxyjjt 1.1 H Wdrl-1-Szwbxkfv 0.5 Gcxe-0-Djzvoltq 0.5 Gamma Globulins 1.2 Abnorm Protein Band 1 0.2 H Abnorm Protein Band 2 TNP Abnorm Protein Band 3 TNP PEP Interpretation SEE NOTE IgG Total 1304 IgA Total 421 H IgM 57 RICHIE Interpretation SEE NOTE Discharge Plan Discharge Patient Disposition: Home Health Service Discharge Diagnosis: maximo Referrals: Leatha Garcia PA [Primary Care Provider] - 1 Week Discharge Medications: Continued multivitamin Tablet 1 tab PO DAILY 0RF loperamide 2 mg Capsule 2 mg PO BID 0RF alendronate [Fosamax] 70 mg Tablet 70 mg PO QWEEK 0RF melatonin 3 mg Tablet 6 mg PO BEDTIME 0RF psyllium Powder 1 tsp PO TID 0RF Rx Instructions: mix into at least 4 oz water or juice before administering amlodipine 10 mg Tablet 10 mg PO DAILY 0RF calcium carbonate-vitamin D3 [Calcium 500 + D] 500 mg-5 mcg (200 unit) Tablet 1 tab PO BID 0RF Aloe Zuni Perineal Solution 5 ml TOPICAL Q2D 0RF Rx Instructions: FOR STOMA CHANGE Discharge Orders: Discharge Order (Routine); Ordered 02/19/22 Ordered By: Fredy Barajas Diet: advance to usual diet Activity on Discharge: As tolerated Stand Alone Forms: Patient Portal Discharge page Care Plan Goals: recovery Health Concerns: maximo, FTT, colon ca Plan of Treatment: encourage po, follow up oncology Assessment: see above
--- NOTE | 2022-02-19 10:33 | W.MHC.F2F ---
Service Date Service Date: 02/19/22 Encounter Date of encounter: 02/19/22 Reasons for Services Signs and symptoms assessed: weak, frail Reason for mcfp: medication management, medication treatment and teach disease management Reason for physical therapy: home safety and mobility, therapeutic exercises and gait/transfer training Homebound: Leaving the home is medically contraindicated at this time without the asist of a device and/or another person due th the listed conditions above and below. Reason homebound: unsteady gait / fall risk Certification: Based on the above findings, I certify that this patient is confined to the home and needs intermittent mcfp care, physical therapy and/or speech therapy, or continues to need occupational therapy. The patient is under my care, and I have initiated the establishment of the plan of care. The patient will be followed by a physician who will periodically review the plan of care.
[2022-02-19] MEDS: Potassium Chloride ER 20 MEQ TAB.ER.PRT 40 MEQ PO (11:06)
--- NOTE | 2022-02-19 11:22 | MHC.CM.PN ---
Patient has been medically cleared for dc to home today, with services. Patient was active with Usha MCRAE, who has been notified of today's dc. IMM addressed with Patient at bedside and CM provided him with the original and placed a copy on the chart. Daughter will transport to home.
[2022-02-19 11:30] VITALS: BP 146/67; PULSE 73; RESP 18; TEMP 36.7; O2SAT 96
== END 2022-02-19 13:30 | disposition home health service (06) | DRG 683 ==
LOC: HO.ED 14:59 → HO.EDOVER 15:52 → HO.IMC 02-14 11:06
PROVIDERS: Internal Medicine Nephrology; Admitting Provider Internal Medicine; Emergency Provider Emergency Medicine; PCP Physician Assistant; Visit Provider Internal Medicine
DX: N17.9 Acute kidney failure, unspecified (principal); C18.9 Malignant neoplasm of colon, unspecified; Z68.1 Body mass index [BMI] 19.9 or less, adult; E44.0 Moderate protein-calorie malnutrition; E87.2 Acidosis; C78.89 Secondary malignant neoplasm of other digestive organs; I12.9 Hypertensive chronic kidney disease with stage 1 through stage 4 chronic kidney disease, or unspecified chronic kidney disease; N25.0 Renal osteodystrophy; N18.9 Chronic kidney disease, unspecified; E87.5 Hyperkalemia; Z93.2 Ileostomy status; E86.0 Dehydration; R62.7 Adult failure to thrive; Z20.822 Contact with and (suspected) exposure to COVID-19; Z79.83 Long term (current) use of bisphosphonates; Z79.899 Other long term (current) drug therapy
CPT/HCPCS: 36415; 71045; 74176; 80048; 80076; 81001; 82272; 82436; 82784; 83690; 84133; 84165; 84300; 84484; 85025; 85027; 86334; 87635; 93005; 96361; 96365; 96366; 97116; 97162; 99285; C1758; J0610